=== PATIENT | male | born 1970 | race Two or more races ===

== ENCOUNTER 2024-11-22 23:25 | Inpatient (IN) | payer MEDICAID, OTHER ==
[~2024-11-22] VITALS: Ht 170.2 cm; Wt 104.5 kg
[2024-11-22] MEDS: SODIUM CHLORIDE 0.9% 1,000 ML IV ONE (23:46)
--- NOTE | 2024-11-22 23:52 | ED.PDOC ---
Altered Mental Status HPI Comments 54-year-old male in to emergency room by EMS for altered level of consciousness. Per EMS, patient was picked up at home where he was last seen acting normal at 7pm. Patient has history of diabetes. Was found by family members altered and confused. Upon arrival of paramedics, noted blood sugar of 21. Patient was givem D10 water and blood sugar slightly improved to 73 which slightly improved patients status. Patient still confused at this time of care and unable to answer any questions. 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) Family History Family History: Pt Confused Social History Smoker: Pt Confused Alcohol: Pt Confused Drugs: Pt Confused Lives In: Home Unable to Obtain due to: Altered Mental Status, Other (Hypoglycemia) Physical Exam General Appearance: No Apparent Distress, Normal HEENT: Normal ENT Inspection, Pharynx Normal, TMs Normal Neck: Full Range of Motion, Non-Tender, Normal, Normal Inspection Respiratory: Chest Non-Tender, Lungs Clear, No Accessory Muscle Use, No Respiratory Distress, Normal Breath Sounds Cardiovascular: No Edema, No JVD, No Murmur, No Gallop, Normal Peripheral Pulses, Regular Rate/Rhythm Breast Exam: Deferred Gastrointestinal: No Organomegaly, Non Tender, No Pulsatile Mass, Normal Bowel Sounds, Soft Genitalia: Deferred Pelvic: Deferred Rectal: Deferred Extremities: No calf tenderness, Normal capillary refill, Normal inspection, Normal range of motion, Non-tender, No pedal edema Musculoskeletal : Apperance: Normal Neurologic: Alert, rand sewer II-XII nml as Tested, No Motor Deficits, Normal Affect, Normal Mood, No Sensory Deficits Cerebellar Function: Normal Reflexes: Normal Skin: Dry, Normal Color, Warm Lymphatic: No Adenopathy Was a procedure done? Was a procedure done?: Yes Sedation Sedation?: Yes Informed consent obtained: Yes Sedation start time: 02:12 Sedation end time: 03:12 Sedation total time: Patient is still sedated at this time Central Line Recorder of insertion practice: Observer Occupation of hand inserter operator: Attending Physician Indication: Inability to obtain IV, Suspected infection Room prepared for procedure: Yes Siebel Architect performed hand hygien: Yes Maximal sterile barrier precau: Mask/Eye shield, Sterile gown, Cap, Sterlie gloves, Large sterlie drape Skin Preparation: Providine iodine Skin preparation completely dr: Yes Insertion site: Right, Femoral Central line catheter type: Tunneled- not dialysis Number of lumens: 3 Central line exchanged over a: Yes Antiseptic ointment applied to: Yes Post Assessment: Chest X-Ray Informed consent obtained: Yes Risks/benefits/alt described: Yes Intubation Indication: Altered Mental Status, Airway Protection Prep: Preoxygenation Pretreated with: Sedation Medicated with: Other (Rocuronium, etomidate) Intubation Approach: Orotracheal Intubation size: cm (8) Informed consent obtained: Yes Risks/benefits/alt described: Yes Differential Diagnosis (ALOC) Differential Diagnosis: Hypoglycemia, Encephalopathy, Hypoxemia, CVA, Drug Overdose, ETOH Intoxication X-Ray, Labs, Meds, VS Vital Signs Date Time Temp Pulse Resp B/P (MAP) Pulse Ox O2 Delivery O2 Flow Rate FiO2 11/23/24 02:35 88 16 200/116 (144) 100 11/23/24 00:05 76 12 94 Room Air* 0 21 11/22/24 23:50 76 12 165/81 (109) 94 11/22/24 23:28 64 11/22/24 23:25 98.3 81 16 113/70 (84) 93 Lab Test 11/23/24 02:45 11/23/24 01:38 11/23/24 01:25 11/23/24 01:00 Range/Units Urine Color Pending Urine Clarity Pending Urine pH Pending Urine Specific [place] Pending Urine Protein Pending Urine Ketones Pending Urine Blood Pending Urine Nitrite Pending Urine Bilirubin Pending Urine Urobilinogen Pending Urine Leukocyte Esterase Pending Urine RBC Pending Urine Microscopic WBC Pending Urine Squamous Epithelial Cells Pending Urine Bacteria Pending Urine Glucose Pending Urine Opiates Screen Pending Urine Fentanyl Screen Pending Urine Barbiturates Screen Pending Urine Phencyclidine Screen Pending Urine Amphetamines Screen Pending Urine Benzodiazepines Screen Pending Urine Cocaine Screen Pending Urine Cannabinoids Screen Pending POC Glucose 108 H 96 70-106 mg/dl Troponin I High Sensitivity 3 L </=54 ng/L Test 11/23/24 00:20 11/23/24 00:09 Range/Units White Blood Count 4.8 4.4-10.8 10^3/uL Red Blood Count 4.29 L 4.5-5.90 10^6/uL Hemoglobin 12.8 L 13.5-17.5 g/dL Hematocrit 37.8 L 41.0-53.0 % Mean Corpuscular Volume 88.1 80.0-100.0 fL Mean Corpuscular Hemoglobin 29.8 28.0-32.0 pg Mean Corpuscular Hemoglobin Concent 33.8 32.0-36.0 g/dL Red Cell Distribution Width 14.3 11.8-14.3 % Platelet Count 226 140-450 10^3/uL Mean Platelet Volume 7.6 6.9-10.8 fL Neutrophils (%) (Auto) 64.4 37.0-80.0 % Lymphocytes (%) (Auto) 25.5 10.0-50.0 % Monocytes (%) (Auto) 7.7 0.0-12.0 % Eosinophils (%) (Auto) 1.3 0.0-7.0 % Basophils (%) (Auto) 1.1 0.0-2.0 % Neutrophils # (Auto) 3.1 1.6-8.6 10 ^3/uL Lymphocytes # (Auto) 1.2 0.4-5.4 10 ^3/uL Monocytes # (Auto) 0.4 0-1.3 10 ^3/uL Eosinophils # (Auto) 0.1 0-0.8 10 ^3/uL Basophils # (Auto) 0.1 0-0.2 10 ^3/uL Nucleated Red Blood Cells 0.1 % Sodium Level 136 136-145 mmol/L Potassium Level 3.5 3.5-5.1 mmol/L Chloride Level 103 98-107 mmol/L Carbon Dioxide Level 26 20-31 mmol/L Anion Gap 7 5-15 Blood Urea Nitrogen 16 9-23 mg/dL Creatinine 0.82 0.700-1.30 mg/dL Glomerular Filtration Rate Calc 104 >90 mL/min BUN/Creatinine Ratio 19.5 10.0-20.0 Serum Glucose 138 H 74-106 mg/dL Lactic Acid Level 1.1 0.4-2.0 mmol/L Calcium Level 8.6 L 8.7-10.4 mg/dL Troponin I High Sensitivity 3 L </=54 ng/L POC Glucose 159 H 70-106 mg/dl Current Medications Medications (Trade) Dose Ordered Sig/Eneida Route Start Time Stop Time Status Last Admin Sodium Chloride 1,000 ml @ 1,000 mls/hr Q1H ONCE IV 11/22/24 23:45 11/23/24 00:44 DC 11/22/24 23:46 EXAM: CT HEAD WITHOUT CONTRAST INDICATION: ams TECHNIQUE: CT of the head without intravenous contrast. Radiation Dose : 1. Head: CT Dose: CTDI volume is 66 mGy. Dose-length product is 1297 mGy*cm The dose indicators for CT are the volume Computed Tomography (CT) Dose Index (CTDIvol) and the Dose Length Product (DLP), and are measured in units of mGy and mGy-cm, respectively. These indicators are not patient dose, but values generated from the CT scanner acquisition factors. The report includes radiation exposure data for exposures received during this examination. COMPARISON: None FINDINGS: There is no evidence of acute intracranial hemorrhage, extra-axial collection, mass effect, midline shift, herniation or hydrocephalus. The ventricles, sulci and cisterns are age appropriate. The villalta-white differentiation is intact. Patchy periventricular and subcortical white matter hypoattenuation is nonspecific but may be related to small vessel ischemic disease. The visualized paranasal sinuses and mastoid air cells are clear. The surrounding soft tissues and osseous structures are unremarkable. IMPRESSION: No acute intracranial abnormality. CHEST RADIOGRAPH Indication: ams Technique: Single frontal view of the chest was obtained COMPARISON: None FINDINGS: Lines and Tubes: None Lungs: Lung volumes are low. No pulmonary edema. No pulmonary infiltrates noted. Mild bibasilar subsegmental atelectasis. Pleura: No effusion. No pneumothorax. Cardiomediastinal contours: Unremarkable Bones: Unremarkable IMPRESSION: Low lung volumes with mild bibasilar subsegmental atelectasis. Time of 1ST Reevaluation: 23:43 Reevaluation 1ST: Unchanged Patient Education/Counseling: Pt Unresponsive (The verbal stimuli) Family Education/Counseling: No Family Present Departure 1 Departure Time of Disposition: 03:36 (Patient with a worsening altered mental status. Patient was becoming more agitated, combative and no longer protecting his airway. Patient was intubated and central line placed. We will admit patient to ICU for further workup) Impression: Primary Impression: Metabolic encephalopathy Additional Impressions: Altered mental status Qualified Codes: R41.0 - Disorientation, unspecified Hypoglycemia Generalized weakness Disposition: ADMITTED INPATIENT Admit to: ICU Condition: Critical Critical Care Note Critical Care Time?: Yes (35 min-critical care time only) Critical care comment: Hypoglycemia, metabolic encephalopathy Authorized and Performed by: Ana Luisa Dallas MD Total critical care time: Approximately 57 minutes Due to a high probability of clinically significant, life threatening deter ioration, the patient required my highest level of preparedness to intervene emergently and I personally spent this critical care time directly and personally managing the patient. This critical care time included obtaining a history; examining the patient; pulse oximetry; ordering and review of studies; arranging urgent treatment with development of a management plan; evaluation of patient's response to treatment; frequent reassessment; and, discussions with other providers. This critical care time was performed to assess and manage the high probability of imminent, life-threatening deterioration that could result in multi-organ fa ilure. It was exclusive of separately billable procedures and treating other patients and teaching time. Please see my other sections and the rest of the note for further information on patient assessment and treatment. Stability Stability form required: No Heart Score Heart Score: Heart Score Response (Comments) Value History N/A 0 EKG N/A 0 Age N/A 0 Risk Factors N/A 0 Troponin N/A 0 Total 0 I personally scribed for ANA LUISA DALLAS MD (KAREN) on 11/22/24 at 23:52. Electronically submitted [facility] Cot[facility] I personally scribed for ANA LUISA DALLAS MD (KAREN) on 11/23/24 at 00:50. Electronically submitted by [facility]us Cotto ([facility] I personally scribed for ANA LUISA DALLAS MD (KAREN) on 11/23/24 at 02:43. Electronically submitted by [facility] Cotto ([facility] I personally scribed for ANA LUISA DALLAS MD (KAREN) on 11/23/24 at 02:48. Electronically submitted by Marcellus Cotto ([email or web address]). ANA LUISA DALLAS MD Nov 22, 2024 23:52
[2024-11-23] VITALS (50 sets, daily range): BP systolic 67–138; BP diastolic 33–71; PULSE 66–80; RESP 12–15; TEMP 97–98.9; O2SAT 94–100
--- NOTE | 2024-11-23 00:18 | DVH ---
EXAM: CT HEAD WITHOUT CONTRAST INDICATION: ams TECHNIQUE: CT of the head without intravenous contrast. Radiation Dose : 1. Head: CT Dose: CTDI volume is 66 mGy. Dose-length product is 1297 mGy*cm The dose indicators for CT are the volume Computed Tomography (CT) Dose Index (CTDIvol) and the Dose Length Product (DLP), and are measured in units of mGy and mGy-cm, respectively. These indicators are not patient dose, but values generated from the CT scanner acquisition factors. The report includes radiation exposure data for exposures received during this examination. COMPARISON: None FINDINGS: There is no evidence of acute intracranial hemorrhage, extra-axial collection, mass effect, midline s hift, herniation or hydrocephalus. The ventricles, sulci and cisterns are age appropriate. The villalta-white differentiation is intact. Patchy periventricular and subcortical white matter hypoattenuation is nonspecific but may be related to small vessel ischemic disease. The visualized paranasal sinuses and mastoid air cells are clear. The surrounding soft tissues and osseous structures are unremarkable. IMPRESSION: No acute intracranial abnormality.
--- NOTE | 2024-11-23 00:22 | DVH ---
CHEST RADIOGRAPH Indication: ams Technique: Single frontal view of the chest was obtained COMPARISON: None FINDINGS: Lines and Tubes: None Lungs: Lung volumes are low. No pulmonary edema. No pulmonary infiltrates noted. Mild bibasilar subse gmental atelectasis. Pleura: No effusion. No pneumothorax. Cardiomediastinal contours: Unremarkable Bones: Unremarkable IMPRESSION: Low lung volumes with mild bibasilar subsegmental atelectasis.
[2024-11-23 00:46] LABS: Basophils # (auto) 0.1 10 ^3/uL (0-0.2); Basophils % (auto) 1.1 % (0.0-2.0); Eosinophils # (auto) 0.1 10 ^3/uL (0-0.8); Eosinophils % (auto) 1.3 % (0.0-7.0); Hematocrit 37.8 % (41.0-53.0); Hemoglobin 12.8 g/dL (13.5-17.5); Lymphocytes # (auto) 1.2 10 ^3/uL (0.4-5.4); Lymphocytes % (auto) 25.5 % (10.0-50.0); Mean Corpuscular Hemoglobin 29.8 pg (28.0-32.0); Mean Corpuscular Hgb Conc. 33.8 g/dL (32.0-36.0); Mean Corpuscular Volume 88.1 fL (80.0-100.0); Monocytes # (auto) 0.4 10 ^3/uL (0-1.3); Monocytes % (auto) 7.7 % (0.0-12.0); Neutrophils # (auto) 3.1 10 ^3/uL (1.6-8.6); Neutrophils % (auto) 64.4 % (37.0-80.0); Nucleated Red Blood Cells % 0.1 %; Platelet Count (auto) 226 10^3/uL (140-450); Red Blood Cells 4.29 10^6/uL (4.5-5.90); Red Cell Distribution Width 14.3 % (11.8-14.3); White Blood Cell 4.8 10^3/uL (4.4-10.8)
[2024-11-23 00:58] LABS: Chloride 103 mmol/L (98-107); Sodium 136 mmol/L (136-145)
[2024-11-23 00:59] LABS: Anion Gap 7 (5-15); Carbon Dioxide 26 mmol/L (20-31)
[2024-11-23 01:04] LABS: BUN/Creatinine Ratio 19.5 (10.0-20.0); Blood Urea Nitrogen 16 mg/dL (9-23)
[2024-11-23 01:05] LABS: Calcium 8.6 mg/dL (8.7-10.4); Glucose 138 mg/dL (74-106); Potassium 3.5 mmol/L (3.5-5.1)
[2024-11-23] MEDS: ETOMIDATE (2MG/ML) 20ML VIAL IV ONE ×2 (02:12→02:26)
[2024-11-23] MEDS: ROCURONIUM 10MG/ML 10ML VIAL IV ONE ×2 (02:12→02:27)
[2024-11-23] MEDS: PROPOFOL 100 ML IV SCH (02:55)
[2024-11-23] MEDS: PROPOFOL 100 ML IV ONE (02:56)
[2024-11-23 03:09] LABS: Urine Bacteria None Seen /hpf (None Seen)
[2024-11-23 03:57] LABS: Urine Blood 1+ /uL (Negative); Urine Clarity Clear (Clear); Urine Color Light-Yellow (Yellow); Urine Protein, UAD TRACE (Negative); Urine Specific Gravity 1.009 (1.001-1.035); Urine Squamous Epithelial Cell None Seen /hpf (<5); Urine Urobilinogen Normal (Negative); Urine WBC 13 /HPF (0-3); Urine pH 6.5 (5.0-9.0)
[2024-11-23 04:01] LABS: Barbiturate Scree,Urine Neg (NEGATIVE)
[2024-11-23] MEDS: fentaNYL Drip 2500mCg/250mlNS 250 ML IV SCH (04:05)
[2024-11-23 04:15] LABS: Amphetamine Screen, Urine Neg (NEGATIVE); Benzodiazephine Screen, Urine Neg (NEGATIVE); Cannabinoid Screen, Urine Neg (NEGATIVE); Cocaine Screen, Urine Neg (NEGATIVE); Opiate Scree,Urine Neg (NEGATIVE); Phencyclidine Screen, Urine Neg (NEGATIVE)
[2024-11-23] MEDS ORDERED: MORPHINE SULFATE INJ 2 MG/ml SYRG IV PRN (04:15)
[2024-11-23] MEDS: SODIUM CHLORIDE 0.9% 1,000 ML IV SCH (04:15)
[2024-11-23] MEDS ORDERED: DEXTROSE (50%) 50ML SYRG IV PRN (04:15)
[2024-11-23] MEDS ORDERED: NITROGLYCERIN 0.4 MG SL TAB SL PRN (04:15)
--- NOTE | 2024-11-23 04:30 | DVHHP2 ---
History of Present Illness Reason for Visit: Acute respiratory failure History of Present Illness The patient is a 54-year-old male with past medical history of factor five deficiency and diabetes mellitus who presented to [facility] ED for evaluation of altered level of consciousness. As reported by family member, patient was found unresponsive, altered, and confused, so EMS were called. When EMS arrived on the scene, patient's blood sugar was 21 mg/dL and was given D10, blood sugar slightly improved to 73 [address] route to our facility ED. patient was seen and evaluated in the ED, laboratory data shows WBC 4.8, platelets 226, sodium 136, potassium 3.5, BUN 16, creatinine 0.82, GFR 104, glucose 136, calcium 8.6, troponin 3, lactic acid 1.1. Patient became more altered with respiratory distress, increased work of breathing, and subsequently intubated due to high probability of clinically significant life-threatening deterioration. Blood pressure 207/124 trending down to 145/91, heart rate 87, temperature 94.1 F, O2 saturation 94% on ventilator. Head CT showed no acute intracranial abnormality. Please see medication orders section in the computer. On my assessment, patient is fully intubated, family member at bedside, no diaphoresis, no diarrhea, no vomiting, no fever. Patient was admitted for further evaluation and medical management. Past Medical History DM, Factor 5 deficiency Past Surgical History AKA (left) Family History Reviewed, noncontributory to the management of this case. Past Social History The patient lives at home, no history of smoking, alcohol or illicit drugs abuse on file. Review of Systems Constitutional: Yes: Weakness; No: Fever, Chills, Sweats, Malaise, Other Eyes: No: Pain, Vision change, Conjunctivae inflammation, Eyelid inflammation, Other, Redness ENT: No: Ear pain, Ear discharge, Nose pain, Nose discharge, Nose congestion, Mouth pain, Mouth swelling, Throat pain, Throat swelling, Other Respiratory: Shortness of breath; No: Cough, Dry, SOB with excertion, Wheezing, Hemoptysis, Pleuritic Pain, Sputum, Wheezing, Other Cardiovascular: No: Chest Pain, Palpitations, Orthopnea, Paroxysmal Noc. Dyspnea, Edema, Lt Headedness, Other Gastrointestinal: No: Nausea, Vomiting, Abdominal Pain, Diarrhea, Constipation, Melena, Hematochezia, Other Genitourinary: No Dysuria, No Frequency, No Incontinence, No Hematuria, No Retention, No Other Musculoskeletal: No: other, neck pain, shoulder pain, arm pain, back pain, hand pain, leg pain, foot pain Skin: No: Rash, Lesions, Jaundice, Bruising, Other Neurological: Other (Altered level of consciousness); No: Weakness, Numbness, Incoordination, Change in speech, Confusion, Seizures Allergies: Coded Allergies: Sulfa Antibiotics (Verified Allergy, Unknown, 11/23/24) Medications Current Medications Medications Dose Ordered Sig/Eneida Route Start Time Stop Time Status Last Admin Dose Admin Propofol 100 ml @ 2.04 mls/hr Q24H IV 11/23/24 02:55 11/23/24 02:55 2.04 MLS/HR Fentanyl Citrate 250 ml @ 2.5 mls/hr Q24H IV 11/23/24 04:00 11/23/24 04:05 2.5 MLS/HR Exam Vital Signs Vital Signs Date Time Temp Pulse Resp B/P (MAP) Pulse Ox O2 Delivery O2 Flow Rate FiO2 11/23/24 04:05 145/91 11/23/24 03:15 94.1 87 16 97 94.1 11/23/24 00:05 Room Air* 0 21 General Appearance: Other (Altered) HEENT: Atraumatic, PERRLA, EOMI, Mucous membr. moist/pink Respiratory: Normal air movement, Other (Ventilator) Cardiovascular: Regular rate, Normal S1, Normal S2, No murmurs Abdominal: Normal bowel sounds, Soft, No tenderness, No hepatospenomegaly, No masses Extremities: No clubbing, No cyanosis, No edema, Normal pulses, No tenderness/swelling Skin: No rashes, No breakdown, No significant lesion Neuro: Reflexes 2+, Other (Generalized weakness) Psych/Mental Status: Other (Unobtainable) Labs/Xrays Labs Test 11/23/24 02:45 11/23/24 01:38 11/23/24 01:25 11/23/24 00:20 Range/Units Urine Color Light-yellow Yellow Urine Clarity Clear Clear Urine pH 6.5 5.0-9.0 Urine Specific [place] 1.009 1.001-1.035 Urine Protein Trace H Negative Urine Ketones Negative Negative Urine Blood 1+ H Negative /uL Urine Nitrite Negative Negative Urine Bilirubin Negative Negative Urine Urobilinogen Normal Negative mg/dL Urine Leukocyte Esterase Trace Negative /uL Urine RBC 8 0 - 3 /hpf Urine Microscopic WBC 13 H 0-3 /HPF Urine Squamous Epithelial Cells None seen <5 /hpf Urine Bacteria None seen None Seen /hpf Urine Glucose 3+ H Normal mg/dL Urine Opiates Screen Neg NEGATIVE Urine Fentanyl Screen Neg NEGATIVE Urine Barbiturates Screen Neg NEGATIVE Urine Phencyclidine Screen Neg NEGATIVE Urine Amphetamines Screen Neg NEGATIVE Urine Benzodiazepines Screen Neg NEGATIVE Urine Cocaine Screen Neg NEGATIVE Urine Cannabinoids Screen Neg NEGATIVE POC Glucose 108 H 70-106 mg/dl Troponin I High Sensitivity 3 L </=54 ng/L White Blood Count 4.8 4.4-10.8 10^3/uL Red Blood Count 4.29 L 4.5-5.90 10^6/uL Hemoglobin 12.8 L 13.5-17.5 g/dL Hematocrit 37.8 L 41.0-53.0 % Mean Corpuscular Volume 88.1 80.0-100.0 fL Mean Corpuscular Hemoglobin 29.8 28.0-32.0 pg Mean Corpuscular Hemoglobin Concent 33.8 32.0-36.0 g/dL Red Cell Distribution Width 14.3 11.8-14.3 % Platelet Count 226 140-450 10^3/uL Mean Platelet Volume 7.6 6.9-10.8 fL Neutrophils (%) (Auto) 64.4 37.0-80.0 % Lymphocytes (%) (Auto) 25.5 10.0-50.0 % Monocytes (%) (Auto) 7.7 0.0-12.0 % Eosinophils (%) (Auto) 1.3 0.0-7.0 % Basophils (%) (Auto) 1.1 0.0-2.0 % Neutrophils # (Auto) 3.1 1.6-8.6 10 ^3/uL Lymphocytes # (Auto) 1.2 0.4-5.4 10 ^3/uL Monocytes # (Auto) 0.4 0-1.3 10 ^3/uL Eosinophils # (Auto) 0.1 0-0.8 10 ^3/uL Basophils # (Auto) 0.1 0-0.2 10 ^3/uL Nucleated Red Blood Cells 0.1 % Sodium Level 136 136-145 mmol/L Potassium Level 3.5 3.5-5.1 mmol/L Chloride Level 103 98-107 mmol/L Carbon Dioxide Level 26 20-31 mmol/L Anion Gap 7 5-15 Blood Urea Nitrogen 16 9-23 mg/dL Creatinine 0.82 0.700-1.30 mg/dL Glomerular Filtration Rate Calc 104 >90 mL/min BUN/Creatinine Ratio 19.5 10.0-20.0 Serum Glucose 138 H 74-106 mg/dL Lactic Acid Level 1.1 0.4-2.0 mmol/L Calcium Level 8.6 L 8.7-10.4 mg/dL PATIENT: DENNY HERNANDEZ ACCT: [id number] UNIT: [id number] : 1970 LOC: ER ROOM / BED: / AGE / SEX: 54 / M ADM STATUS: REG ER SERVICE [id number] ORDERING PHYSICIAN: ANA LUISA GRULLON MD PROCEDURE(s): HWOCT - HEAD WITHOUT CONTRAST REASON: [facility] ORDER NUMBER(s): [id number], ACCESSION NUMBER(s): [id number] EXAM: CT HEAD WITHOUT CONTRAST INDICATION: ams TECHNIQUE: CT of the head without intravenous contrast. Radiation Dose: 1. Head: CT Dose: CTDI volume is 66 mGy. Dose-length product is 1297 mGy*cm The dose indicators for CT are the volume Computed Tomography (CT) Dose Index (CTDIvol) and the Dose Length Product (DLP), and are measured in units of mGy and mGy-cm, respectively. These indicators are not patient dose, but values generated from the CT scanner acquisition factors. The report includes radiation exposure data for exposures received during this examination. COMPARISON: None FINDINGS: There is no evidence of acute intracranial hemorrhage, extra-axial collection, mass effect, midline shift, herniation or hydrocephalus. The ventricles, sulci and cisterns are age appropriate. The villalta-white differentiation is intact. Patchy periventricular and subcortical white matter hypoattenuation is nonspecific but may be related to small vessel ischemic disease. The visualized paranasal sinuses and mastoid air cells are clear. The surrounding soft tissues and osseous structures are unremarkable. IMPRESSION: No acute intracranial abnormality. PROCEDURE(s): CXRP - CHEST PORTABLE REASON: [facility] ORDER NUMBER(s): [id number], ACCESSION NUMBER(s): [id number] CHEST RADIOGRAPH Indication: ams Technique: Single frontal view of the chest was obtained COMPARISON: None FINDINGS: Lines and Tubes: None Lungs: Lung volumes are low. No pulmonary edema. No pulmonary infiltrates noted. Mild bibasilar subsegmental atelectasis. Pleura: No effusion. No pneumothorax. Cardiomediastinal contours: Unremarkable Bones: Unremarkable IMPRESSION: Low lung volumes with mild bibasilar subsegmental atelectasis. Assessment/Plan Assessment/Plan Metabolic encephalopathy Altered mental status Disorientation, unspecified Hypoglycemia Hypertensive urgency Generalized weakness Plan 1. Admit to telemetry unit 2. Breathing treatment 3. Pain control management 4. Management of fluids and electrolytes 5. Consultation for hospitalist/pulmonology 6. Diagnostic tests head CT 7. DVT prophylaxis on SCDs 8. Repeat labs CBC, CMP in a.m. 9. Continue with current medical management 10. Treatment plan discussed with patient and RN. Patient verbalized understanding. Plan discussed with: Patient, Other (RN) Problem List: (1) Metabolic encephalopathy (2) Altered mental status (3) Hypoglycemia (4) Disorientation, unspecified (5) Hypertensive urgency (6) Generalized weakness Date of Service: Nov 23, 2024 Billing Provider: JACKIE ARIAS DNP Common Visit Codes: [id number] INP/OBS CARE (HIGH) JACKIE ARIAS DNP Nov 23, 2024 04:30
[2024-11-23] MEDS: SODIUM CHLORIDE 0.9% 2,000 ML IV ONE (04:55)
[2024-11-23 05:14] LABS: Base Excess 1.6 mmol/L (-2.0-3.0)
[2024-11-23] MEDS: NOREPINEPHRINE 8 MG/250ML KIT 250 ML IV ONE (05:23)
[2024-11-23] MEDS: NOREPINEPHRINE 8 MG/250ML KIT 250 ML IV SCH (05:23)
--- NOTE | 2024-11-23 06:14 | ECG ---
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
--- NOTE | 2024-11-23 06:21 | DVH ---
EXAM: XR Chest, 1 View CLINICAL INDICATION: s/p intubation/OG tube placement TECHNIQUE: Frontal view of the chest. COMPARISON: XY CHEST PORTABLE on DOS: 11/23/24 FINDINGS: LUNGS AND PLEURAL SPACES: Mild pulmonary congestion. No consolidation. No pneumothorax. HEART: Unremarkable. No cardiomegaly. MEDIASTINUM: Unremarkable. Normal mediastinal contour. BONES/JOINTS: Unremarkable. No acute fracture. TUBES, LINES AND DEVICES: The endotracheal tube (ETT) is in satisfactory position. Enteric tube ti p in the stomach. OTHER FINDINGS: . None. ... IMPRESSION: Mild pulmonary congestion.
[2024-11-23] MEDS: ACCU-CHEK COMFORT CURVE STRIP VI SCH (06:53)
[2024-11-23] MEDS: InsuLIN REG 1unit/0.01ml Soln (100units/ml) SC SCH (06:53)
[2024-11-23] MEDS: FAMOTIDINE (10MG/ML) 2ML VL IV SCH (10:09)
[2024-11-23 10:45] LABS: Base Excess -0.4 mmol/L (-2.0-3.0)
[2024-11-23] MEDS ORDERED: WARF-66 PO ×3 (13:43)
[2024-11-23] MEDS ORDERED: LISI20TA56 PO (14:23)
[2024-11-23] MEDS ORDERED: ATOR10TA PO (14:27)
[2024-11-23 16:08] LABS: INR 2.12 (0.9-1.15); Partial Thromboplastin Time 39.4 SEC (24.5-34.5); Prothrombin Time 20.9 sec (9.3-11.8)
--- NOTE | 2024-11-23 18:16 | DVHINCON2 ---
Date of service: Nov 23, 2024 Referring Physician Neville Driscoll MD Reason for Consultation Acute hypoxic respiratory failure requiring mechanical ventilator History of Present Illness A 54-year-old man with past medical history of factor V deficiency and diabetes mellitus who presented to the ED on 11/22/24 for evaluation of altered level of consciousness. Per family, patient was found unresponsive, altered, and conf used, so EMS were called. EMS noted blood sugar of 21 mg/dL and was given D10, blood sugar slightly improved to 73 en route to ED. ED workup was notable for WBC 4.8, platelets 226, sodium 136, potassium 3.5, BUN 16, creatinine 0.82, GFR 104, glucose 136, calcium 8.6, troponin 3, lactic acid 1.1. Patient became more altered with respiratory distress, increased work of breathing, and was subsequently intubated due to high probability of clinically significant life-threatening deterioration. Blood pressure was 207/124 trending down to 145/91, heart rate 87, temperature 94.1 F, O2 saturation 94% on ventilator. Head CT showed no acute intracranial abnormality. Patient was admitted for further care, and pulmonary consultation is requested for evaluati on and management of acute hypoxic respiratory failure requiring mechanical ventilator. Review of Systems: 14-point review of systems negative unless otherwise noted above. Past Medical History: Factor V deficiency and diabetes mellitus Past Surgical History: Left AKA Medications: Reviewed. Allergies: Sulfa antibiotics Family History: No family history of premature CAD. No family history of lung disorders. Social History: Nonsmoker. No alcohol or illicit drug use. Allergies: Coded Allergies: Sulfa Antibiotics (Verified Allergy, Unknown, 11/23/24) Home Meds Reported Medications Atorvastatin Calcium (Lipitor) 10 Mg Tab, 1 TAB PO DAILY, #100 TAB 1 Refill 11/23/24 Lisinopril (Lisinopril) 20 Mg Tab, 20 MG PO DAILY for 30 Days, MG 11/23/24 Warfarin Sodium (Warfarin Sodium) 5 Mg Tab, 5 MG PO UD for FACTOR for 30 Days, MG 11/23/24 Warfarin Sodium (Warfarin Sodium) 5 Mg Tab, 2 TAB PO TUTHSA for FACTOR 5, #90 TAB 1 Refill 11/23/24 Warfarin Sodium (Warfarin Sodium) 5 Mg Tab, 15 MG PO MWF for FACTOR 5 for 30 Days, MG 11/23/24 Current Medications Current Medications Medications (Trade) Dose Ordered Sig/Eneida Route PRN Reason Start Time Stop Time Status Last Admin Propofol 100 ml @ 2.04 mls/hr Q24H IV 11/23/24 02:55 11/23/24 16:21 Fentanyl Citrate 250 ml @ 2.5 mls/hr Q24H IV 11/23/24 04:00 11/23/24 14:54 Famotidine (Pepcid Injection) 20 mg Q12HR IV 11/23/24 10:00 11/23/24 10:09 Diagnostic Test (Pha) (Accu-Chek Comfort Curve T) 1 strip ACHS 11/23/24 07:00 11/23/24 16:28 Insulin Human Regular (InsuLIN R) ACHS SC 11/23/24 07:00 Dextrose 50 ml UD PRN IV Blood Sugar LESS THAN 60 11/23/24 04:15 Sodium Chloride 1,000 ml @ 60 mls/hr [id number] IV 11/23/24 04:15 11/23/24 04:15 Ondansetron HCl (Zofran) 4 mg Q4HP PRN IV NAUSEA / VOMITING 11/23/24 04:15 Nitroglycerin (Ntrostat Sublingual) 0.4 mg Q5MINP PRN SL FOR CHEST PAIN 11/23/24 04:15 Morphine Sulfate 2 mg Q30M PRN IV FOR CHEST PAIN 11/23/24 04:15 Hydralazine HCl (Apresoline Injection) 10 mg Q6HP PRN IV SBP>150 11/23/24 05:15 Norepinephrine Bitartrate 250 ml @ 18.75 mls/ hr [id number] IV 11/23/24 05:15 11/23/24 05:23 Vital Signs Vital Signs Date Time Temp Pulse Resp B/P (MAP) Pulse Ox O2 Delivery O2 Flow Rate FiO2 11/23/24 17:35 14 100 Mechanical Ventilator+ 30 30 11/23/24 17:35 76 11/23/24 16:30 138/71 (93) 11/23/24 16:00 98.9 98.9 11/23/24 00:05 0 Physical Exam Gen.: Patient lying in bed in medical ICU. Sedated, intubated on mechanical ventilator. Head: Normocephalic, atraumatic. Eyes: PERRLA. Ears: Normal external anatomy. Throat: Endotracheal tube and orogastric tube in place. Neck: Supple, trachea midline. Chest: Transmitted breath sounds bilaterally. Decreased air entry bilaterally. No wheezing. Bibasilar crackles. Cardiovascular: Positive S1, positive S2. Regular rate and rhythm. Abdomen: Positive bowel sounds in all 4 quadrants. Soft, nontender, nondistended. : Oquendo in place. Normal external genitalia. Rectal: Deferred. Skin: Warm, dry. Intact. Extremities: 2+ radial pulses bilaterally. Left AKA. No lower extremity edema. Neuro: Sedated. Labs/Diagnostic Data Labs Test 11/23/24 16:28 11/23/24 15:00 11/23/24 10:32 11/23/24 02:45 Range/Units POC Glucose 76 70-106 mg/dl Prothrombin Time 20.9 H 9.3-11.8 sec Prothrombin Time INR 2.12 H 0.9-1.15 Activated Partial Thromboplast Time 39.4 H 24.5-34.5 SEC Blood Gas Specimen Type Arterial Blood Gas Sample Site Left brachial Blood Gas Patient Temperature 37.0 Arterial Blood Date Drawn [id number] Arterial Blood pH 7.387 7.350-7.450 Arterial Blood Partial Pressure CO2 42.0 35.0-48.0 mmHg Arterial Blood Partial Pressure O2 110.0 H 83.0-108.0 mmHg Arterial Blood HCO3 24.7 21.0-28.0 mmol/L Arterial Blood Oxygen Saturation 97.8 94.0-98.0 % Arterial Blood Base Excess -0.4 -2.0-3.0 mmol/L Arterial Blood Oxyhemoglobin 96.5 94.0-98.0 % Arterial Blood Carboxyhemoglobin 0.3 L 0.5-1.5 % Arterial Blood Methemoglobin 1.0 0.0-1.5 % Chris Test N/a Blood Gas Total Hemoglobin 11.80 L 13.5-17.5 g/dL Blood Gas Set Respiration Rate 14.0 Blood Gas Modality Vent - ac Blood Gas Spontaneous Rate 14 FiO2 % 30.0 Blood Gas Tidal Volume 450.0 Blood Gas PEEP or CPAP 5.0 Urine Color Light-yellow Yellow Urine Clarity Clear Clear Urine pH 6.5 5.0-9.0 Urine Specific [place] 1.009 1.001-1.035 Urine Protein Trace H Negative Urine Ketones Negative Negative Urine Blood 1+ H Negative /uL Urine Nitrite Negative Negative Urine Bilirubin Negative Negative Urine Urobilinogen Normal Negative mg/dL Urine Leukocyte Esterase Trace Negative /uL Urine RBC 8 0 - 3 /hpf Urine Microscopic WBC 13 H 0-3 /HPF Urine Squamous Epithelial Cells None seen <5 /hpf Urine Bacteria None seen None Seen /hpf Urine Glucose 3+ H Normal mg/dL Urine Opiates Screen Neg NEGATIVE Urine Fentanyl Screen Neg NEGATIVE Urine Barbiturates Screen Neg NEGATIVE Urine Phencyclidine Screen Neg NEGATIVE Urine Amphetamines Screen Neg NEGATIVE Urine Benzodiazepines Screen Neg NEGATIVE Urine Cocaine Screen Neg NEGATIVE Urine Cannabinoids Screen Neg NEGATIVE Test 11/23/24 01:25 11/23/24 00:20 Range/Units Troponin I High Sensitivity 3 L </=54 ng/L White Blood Count 4.8 4.4-10.8 10^3/uL Red Blood Count 4.29 L 4.5-5.90 10^6/uL Hemoglobin 12.8 L 13.5-17.5 g/dL Hematocrit 37.8 L 41.0-53.0 % Mean Corpuscular Volume 88.1 80.0-100.0 fL Mean Corpuscular Hemoglobin 29.8 28.0-32.0 pg Mean Corpuscular Hemoglobin Concent 33.8 32.0-36.0 g/dL Red Cell Distribution Width 14.3 11.8-14.3 % Platelet Count 226 140-450 10^3/uL Mean Platelet Volume 7.6 6.9-10.8 fL Neutrophils (%) (Auto) 64.4 37.0-80.0 % Lymphocytes (%) (Auto) 25.5 10.0-50.0 % Monocytes (%) (Auto) 7.7 0.0-12.0 % Eosinophils (%) (Auto) 1.3 0.0-7.0 % Basophils (%) (Auto) 1.1 0.0-2.0 % Neutrophils # (Auto) 3.1 1.6-8.6 10 ^3/uL Lymphocytes # (Auto) 1.2 0.4-5.4 10 ^3/uL Monocytes # (Auto) 0.4 0-1.3 10 ^3/uL Eosinophils # (Auto) 0.1 0-0.8 10 ^3/uL Basophils # (Auto) 0.1 0-0.2 10 ^3/uL Nucleated Red Blood Cells 0.1 % Sodium Level 136 136-145 mmol/L Potassium Level 3.5 3.5-5.1 mmol/L Chloride Level 103 98-107 mmol/L Carbon Dioxide Level 26 20-31 mmol/L Anion Gap 7 5-15 Blood Urea Nitrogen 16 9-23 mg/dL Creatinine 0.82 0.700-1.30 mg/dL Glomerular Filtration Rate Calc 104 >90 mL/min BUN/Creatinine Ratio 19.5 10.0-20.0 Serum Glucose 138 H 74-106 mg/dL Lactic Acid Level 1.1 0.4-2.0 mmol/L Calcium Level 8.6 L 8.7-10.4 mg/dL Microbiology Date/Time Source Procedure Growth Status 11/23/24 02:35 Sputum Endotracheal Wash Gram Stain - Final Resulted 11/23/24 02:35 Sputum Endotracheal Wash Respiratory Culture Pending Resulted Assessment Impression: Acute hypoxic respiratory failure On mechanical ventilator Acute metabolic encephalopathy Altered mental status Hypoglycemia Hypertensive urgency Generalized weakness Shock Plan: s/p intubation on mechanical ventilator. CXR image and report reviewed. Mild pulmonary vascular congestion. Devices in place. ABG reviewed, notable for alkalemia. On AC mode; RR 16, VT 500, PEEP 5, FiO2 of 30% Decrease tidal volume to 450 mL. Titrate FIO2 to keep O2 saturation above 90%. VAP bundle. Daily ABG and CXR while intubated Sedate for ventilator synchrony - on Propofol/Fentanyl drip On pressors for hemodynamic support Levophed 2 mcg/min Titrate to keep mean arterial pressure greater than 65 mmHg. Monitor off antibiotics Afebrile. If febrile or increase in WBC count, then initiate empiric antibiotics Accu-Cheks, insulin sliding scale. Monitor renal function Monitor electrolytes. Supplement as necessary. Monitor ins and outs. GI prophylaxis - Pepcid BID Prognosis: Poor given patient's multiple co-morbidities. Condition: Critical Rest of plan per hospitalist and other consultants. A total of 36 minutes of critical care time was spent reviewing the patient record, examining the patient, making a diagnostic and therapeutic plan, discussing this plan with the medical personnel, following up on diagnostic studies and following the patient for clinical stability excluding any and all procedures. At least 50% of this time was spent in direct, [id number] contact. Thank you, Dr. Driscoll, for allowing me to participate in this patient's care. Further recommendations will depend on the patient's clinical course. Please do not hesitate to contact me if you have any questions or concerns. This medical document was created using an electronic medical record system with [employer] dictation system. Although these documentations are being carefully reviewed, there may still be some phonetic and typographical changes. The errors are purely typographical, due to imperfection on the software progr am, and do not reflect any compromise in the patient's medical care. Plan discussed with: Other (KERMIT Juares/Dr. Driscoll) MICKEY RUFF MD Nov 23, 2024 18:16
[2024-11-23] MEDS: D5W 5% 1,000 ML IV SCH (20:27)
[2024-11-23] MEDS: ACETAMINOPHEN IV 1000 MG/100ML (10MG/ML) IV ONE (22:51)
[2024-11-24] VITALS (90 sets, daily range): BP systolic 79–204; BP diastolic 40–211; PULSE 60–76; RESP 12–19; TEMP 97.7–100.4; O2SAT 98–100
[2024-11-24 06:45] LABS: Basophils # (auto) 0.1 10 ^3/uL (0-0.2); Eosinophils # (auto) 0.3 10 ^3/uL (0-0.8); Hematocrit 35.2 % (41.0-53.0); Hemoglobin 11.6 g/dL (13.5-17.5); Lymphocytes # (auto) 3.5 10 ^3/uL (0.4-5.4); Lymphocytes % (auto) 33.5 % (10.0-50.0); Mean Corpuscular Hemoglobin 29.1 pg (28.0-32.0); Mean Corpuscular Volume 88.2 fL (80.0-100.0); Monocytes # (auto) 1.5 10 ^3/uL (0-1.3); Monocytes % (auto) 14.2 % (0.0-12.0); Neutrophils % (auto) 48.3 % (37.0-80.0); Nucleated Red Blood Cells % 0.1 %; Platelet Count (auto) 252 10^3/uL (140-450); Red Blood Cells 3.99 10^6/uL (4.5-5.90); Red Cell Distribution Width 14.8 % (11.8-14.3); White Blood Cell 10.3 10^3/uL (4.4-10.8)
[2024-11-24 06:54] LABS: Alanine Aminotransferase 19 U/L (7-40); Alkaline Phosphatase 88 U/L (46-116); Anion Gap 9 (5-15); Aspartate Aminotransferase 24 U/L (13-40); BUN/Creatinine Ratio 10.9 (10.0-20.0); Bilirubin, Total 0.2 mg/dL (0.2-1.0); Blood Urea Nitrogen 12 mg/dL (9-23); Calcium 7.7 mg/dL (8.7-10.4); Carbon Dioxide 25 mmol/L (20-31); Chloride 106 mmol/L (98-107); Glucose 85 mg/dL (74-106); Potassium 3.3 mmol/L (3.5-5.1); Sodium 140 mmol/L (136-145)
[2024-11-24 06:55] LABS: Total Protein 5.3 g/dL (5.7-8.2)
[2024-11-24] MEDS: ENOXAPARIN SOD 40 MG/0.4 ML SYRINGE SC SCH (07:24)
[2024-11-24] MEDS: ACETAMINOPHEN 650 MG RECT SUPP PR PRN (08:00)
[2024-11-24 09:39] LABS: Base Excess 2.3 mmol/L (-2.0-3.0)
[2024-11-24] MEDS: POTASSIUM CHL 20MEQ/100ML 100 ML IV SCH (12:30)
[2024-11-24] MEDS: PIPERACILLIN-TAZOB 3.375GM 100 ML IV SCH (13:30)
[2024-11-24] MEDS ORDERED: CIPR500T4 PO (16:06)
[2024-11-24] MEDS ORDERED: METR-344 PO (16:06)
--- NOTE | 2024-11-24 18:04 | DVHPN2 ---
Subjective in bed intubated and sedated Changes from previous H/P or p: No Changes Eyes: No Pain, No Vision change, No Conjunctivae inflammation, No Eyelid inflammation, No Other, No Redness ENT: No Ear pain, No Ear discharge, No Nose pain, No Nose discharge, No Nose congestion, No Mouth pain, No Mouth swelling, No Throat pain, No Throat swelling, No Other Cardiovascular: No Chest Pain, No Palpitations, No Orthopnea, No Paroxysmal Noc. Dyspnea, No Edema, No Lt Headedness, No Other Respiratory: No Cough, No Dry; Shortness of breath; No SOB with excertion, No Wheezing, No Hemoptysis, No Pleuritic Pain, No Sputum, No Other Gastrointestinal: No Nausea, No Vomiting, No Abdominal Pain, No Diarrhea, No Constipation, No Melena, No Hematochezia, No Other Genitourinary: No Dysuria, No Frequency, No Incontinence, No Hematuria, No Retention, No Other Musculoskeletal: No other, No neck pain, No shoulder pain, No arm pain, No back pain, No hand pain, No leg pain, No foot pain Skin: No Rash, No Lesions, No Jaundice, No Bruising, No Other Objective Vitals Vital Signs Date Time Temp Pulse Resp B/P (MAP) Pulse Ox O2 Delivery O2 Flow Rate FiO2 11/24/24 17:45 100.0 70 16 106/54 (71) 99 212.0 11/24/24 17:41 30 11/24/24 17:40 Mechanical Ventilator+ 11/23/24 00:05 0 Intake/Output Intake and Output 11/24/24 07:00 Intake Total 2515.5240 ml Output Total 380 ml Balance 2135.5240 ml IV Total 2515.5240 ml Output Urine Total 380 ml # Bowel Movements 1 General Appearance: Other (intubated and sedated) Cardiovascular: Regular rate Extremities: No edema Medications Current Medications Medications Dose Ordered Sig/Eneida Route Start Time Stop Time Status Last Admin Dose Admin Propofol 100 ml @ 2.04 mls/hr Q24H IV 11/23/24 02:55 11/24/24 15:43 14.28 MLS/HR Fentanyl Citrate 250 ml @ 2.5 mls/hr Q24H IV 11/23/24 04:00 11/24/24 08:56 25 MLS/HR Famotidine 20 mg Q12HR IV 11/23/24 10:00 11/24/24 07:23 20 MG Diagnostic Test (Pha) 1 strip ACHS 11/23/24 07:00 11/24/24 16:12 1 STRIP Insulin Human Regular ACHS SC 11/23/24 07:00 Dextrose 50 ml UD PRN IV 11/23/24 04:15 Ondansetron HCl 4 mg Q4HP PRN IV 11/23/24 04:15 Nitroglycerin 0.4 mg Q5MINP PRN SL 11/23/24 04:15 Morphine Sulfate 2 mg Q30M PRN IV 11/23/24 04:15 Hydralazine HCl 10 mg Q6HP PRN IV 11/23/24 05:15 Norepinephrine Bitartrate 250 ml @ 18.75 mls/ hr [id number] IV 11/23/24 05:15 11/23/24 05:23 18.75 MLS/HR Dextrose 1,000 ml @ 60 mls/hr [id number] IV 11/23/24 20:30 11/24/24 12:58 60 MLS/HR Acetaminophen 650 mg Q6HP PRN IA 11/23/24 22:45 11/24/24 08:00 650 MG Enoxaparin Sodium 40 mg DAILY SC 11/24/24 10:00 11/24/24 07:24 40 MG Piperacillin Sod/ Tazobactam Sod 100 ml @ 25 mls/hr Q8HR IV 11/24/24 14:00 11/24/24 13:30 25 MLS/HR Laboratory Results Laboratory Tests 11/24/24 05:52 Chemistry Test 11/24/24 05:52 11/24/24 08:15 11/24/24 14:39 Albumin 3.0 g/dL (3.2-4.8) L Calcium Level 7.7 mg/dL (8.7-10.4) L Total Protein 5.3 g/dL (5.7-8.2) L Magnesium Level 2.0 mg/dL (1.6-2.6) 2.0 mg/dL (1.6-2.6) LFT Test 11/24/24 05:52 Alanine Aminotransferase (ALT) 19 U/L (7-40) Alkaline Phosphatase 88 U/L (46-116) Aspartate Amino Transferase (AST) 24 U/L (13-40) Total Bilirubin 0.2 mg/dL (0.2-1.0) Urinalysis Test 11/23/24 02:45 Urine Color Light-yellow (Yellow) Urine Clarity Clear (Clear) Urine pH 6.5 (5.0-9.0) Urine Specific [place] 1.009 (1.001-1.035) Urine Protein Trace (Negative) H Urine Ketones Negative (Negative) Urine Blood 1+ /uL (Negative) H Urine Nitrite Negative (Negative) Urine Bilirubin Negative (Negative) Urine Urobilinogen Normal mg/dL (Negative) Urine Leukocyte Esterase Trace /uL (Negative) Urine RBC 8 /hpf (0 - 3) Urine Microscopic WBC 13 /HPF (0-3) H Urine Squamous Epithelial Cells None seen /hpf (<5) Urine Bacteria None seen /hpf (None Seen) Urine Glucose 3+ mg/dL (Normal) H Blood Gas Results Test 11/24/24 07:16 Arterial Blood pH 7.332 (7.350-7.450) FiO2 % 30.0 Microbiology Microbiology Date/Time Source Procedure Growth Status 11/23/24 02:35 Sputum Endotracheal Wash Gram Stain - Final Resulted 11/23/24 02:35 Sputum Endotracheal Wash Respiratory Culture - Preliminary Resulted Assessment/Plan Assessment/Plan Metabolic encephalopathy Altered mental status Disorientation, unspecified Hypoglycemia Hypertensive urgency Generalized weakness Continued mechanical ventilation per ICU levophed to keep MAP >65 IV zosyn blood cx critical care time was 68 minutes Plan discussed with: Daughter My Orders Orders - EMILY PALACIOS MD Procedure Category Date Status Time Blood Culture IVONNE 11/24/24 In Process 12:09 Piperacillin-Tazob PHA 11/24/24 In Process 3.375gm (Zosyn 3.375g 14:00 Urine Bacterial IVONNE 11/24/24 In Process Culture 14:38 Respiratory Culture IVONNE 11/24/24 In Process W/ Gs 14:38 * Wound Consult CONS 11/24/24 Transmitted * Dietary Consult CONS 11/24/24 Transmitted 12:43 Complete Blood Count LAB 11/25/24 Verified 04:00 Comprehensive LAB 11/25/24 Verified Metabolic Panel 04:00 Chest Portable XY 11/25/24 Logged 04:00 Magnesium LAB 11/25/24 Verified 04:00 Mrsa Screen IVONNE 11/24/24 In Process 15:32 Cleanse Wound With KEENAN 11/24/24 In Process Wound Clean 13:30 Apply Barrier Cream KEENAN 11/24/24 In Process 13:30 Date of Service: Nov 24, 2024 Billing Provider: EMILY PALACIOS MD Common Visit Codes: [id number] CARE 30-74 MIN EMILY PALACIOS MD Nov 24, 2024 18:04
--- NOTE | 2024-11-24 18:55 | DVHPN2 ---
Progress Note - Dictate Date Seen: Nov 24, 2024 Medical Necessity Reason Pt with a Central, PICC or Fol: Yes The following are medically ne: Herrera Catheter Reason for herrera catheter: Strict I&O Subjective Patient seen and examined at bedside. Sedated, intubated on mechanical ventilator. Overnight events reviewed. vital signs Vital Sign Date Time Temp Pulse Resp B/P (MAP) Pulse Ox O2 Delivery O2 Flow Rate FiO2 11/24/24 18:30 100.0 71 16 115/61 (79) 100 212.0 11/24/24 17:41 30 11/24/24 17:40 Mechanical Ventilator+ 11/23/24 00:05 0 Total Intake and Output 11/23/24 11/23/24 11/24/24 15:00 23:00 07:00 Intake Total 866.325 ml 690.215 ml 958.9840 ml Output Total 380 ml Balance 866.325 ml 310.215 ml 958.9840 ml medications Current Medications Medications Dose Ordered Sig/Eneida Route Start Time Stop Time Status Last Admin Dose Admin Propofol 100 ml @ 2.04 mls/hr Q24H IV 11/23/24 02:55 11/24/24 15:43 14.28 MLS/HR Fentanyl Citrate 250 ml @ 2.5 mls/hr Q24H IV 11/23/24 04:00 11/24/24 08:56 25 MLS/HR Famotidine 20 mg Q12HR IV 11/23/24 10:00 11/24/24 07:23 20 MG Diagnostic Test (Pha) 1 strip ACHS 11/23/24 07:00 11/24/24 16:12 1 STRIP Insulin Human Regular ACHS SC 11/23/24 07:00 Dextrose 50 ml UD PRN IV 11/23/24 04:15 Ondansetron HCl 4 mg Q4HP PRN IV 11/23/24 04:15 Nitroglycerin 0.4 mg Q5MINP PRN SL 11/23/24 04:15 Morphine Sulfate 2 mg Q30M PRN IV 11/23/24 04:15 Hydralazine HCl 10 mg Q6HP PRN IV 11/23/24 05:15 Norepinephrine Bitartrate 250 ml @ 18.75 mls/ hr [id number] IV 11/23/24 05:15 11/23/24 05:23 18.75 MLS/HR Dextrose 1,000 ml @ 60 mls/hr [id number] IV 11/23/24 20:30 11/24/24 12:58 60 MLS/HR Acetaminophen 650 mg Q6HP PRN AR 11/23/24 22:45 11/24/24 08:00 650 MG Enoxaparin Sodium 40 mg DAILY SC 11/24/24 10:00 11/24/24 07:24 40 MG Piperacillin Sod/ Tazobactam Sod 100 ml @ 25 mls/hr Q8HR IV 11/24/24 14:00 11/24/24 13:30 25 MLS/HR objective Gen.: Patient lying in bed in medical ICU. Sedated, intubated on mechanical ventilator. Head: Normocephalic, atraumatic. Eyes: PERRLA. Ears: Normal external anatomy. Throat: Endotracheal tube and orogastric tube in place. Neck: Supple, trachea midline. Chest: Transmitted breath sounds bilaterally. Decreased air entry bilaterally. No wheezing. Bibasilar crackles. Cardiovascular: Positive S1, positive S2. Regular rate and rhythm. Abdomen: Positive bowel sounds in all 4 quadrants. Soft, nontender, nondistended. : Herrera in place. Normal external genitalia. Rectal: Deferred. Skin: Warm, dry. Intact. Extremities: 2+ radial pulses bilaterally. No lower extremity edema. Neuro: Sedated. laboratory and microbiology Laboratory Tests 11/24/24 05:52 Test 11/24/24 05:52 Range/Units Serum Glucose 85 74-106 mg/dL Assessment/Plan Impression: Acute hypoxic respiratory failure On mechanical ventilator Acute metabolic encephalopathy Altered mental status Hypoglycemia Hypertensive urgency Generalized weakness Shock Events: Remains on vent support On AC mode; RR 12, VT 450, PEEP 5, FiO2 of 30% Increase RR to 16 CXR image and report reviewed. Mild pulmonary vascular congestion. Devices in place. ABG reviewed, notable for acidemia d/t CO2 retention Sedated on Propofol, Fentanyl Start antibiotics F/u cultures Monitor hemoglobin - 11.6 g/dL On pressors for hemodynamic support Levophed 2 mcg/min Titrate to keep mean arterial pressure greater than 65 mmHg. IV fluids with D5W at 60 ml/hr due to hypoglycemia Monitor renal function Monitor electrolytes. Supplement as necessary. Supplement potassium Accu-Cheks, insulin sliding scale. GI prophylaxis - Pepcid BID Labs and imaging reviewed. Rest of plan as noted below. Plan: s/p intubation on mechanical ventilator. On AC mode; RR 12, VT 450, PEEP 5, FiO2 of 30% Increase RR to 16 Titrate FIO2 to keep O2 saturation above 90%. VAP bundle. Daily ABG and CXR while intubated Sedate for ventilator synchrony On pressors for hemodynamic support Titrate to keep mean arterial pressure greater than 65 mmHg. Start antibiotics Accu-Cheks, insulin sliding scale. Monitor renal function Monitor electrolytes. Supplement as necessary. Monitor ins and outs. GI prophylaxis - Pepcid BID Prognosis: Poor given patient's multiple co-morbidities. Condition: Critical Rest of plan per hospitalist and other consultants. A total of 35 minutes of critical care time was spent reviewing the patient record, examining the patient, making a diagnostic and therapeutic plan, discussing this plan with the medical personnel, following up on diagnostic studies and following the patient for clinical stability excluding any and all procedures. At least 50% of this time was spent in direct, [id number] contact. Thank you, Dr. Driscoll, for allowing me to participate in this patient's care. Further recommendations will depend on the patient's clinical course. Please do not hesitate to contact me if you have any questions or concerns. This medical document was created using an electronic medical record system with [employer] dictation system. Although these documentations are being carefully reviewed, there may still be some phonetic and typographical changes. The errors are purely typographical, due to imperfection on the software program, and do not reflect any compromise in the patient's medical care. Dietary Evaluation Review Comments: 1) IF GI route is preferred, consider Glucerna 1.2 @ 50 mL/hr goal rate as tolerated. Goal rate will provide 1440 kcals, 72g Pro, and 864 free H2O per 24 hours. Goal rate will meet 85% daily estimated energy needs and 85% daily estimated protein eneds. 2) If patient remains NPO for more than 7 days, consider TPN to meet at least 75% of estimated needs 3) Advance patient when medically feasible to 60g CCHO diet, pending [employer] approval 4) Current plan of care Expected Outcomes/Goals: 1) Patient to receive nutritional support within 7 days 2) appetite and labs to improve 3) diet to advance 4) f/u in 3 days Plan discussed with: Other (KERMIT Conklin) Critical Care Time(min): 35 MICKEY RUFF MD Nov 24, 2024 18:55
[2024-11-25] VITALS (89 sets, daily range): BP systolic 88–168; BP diastolic 43–87; PULSE 60–100; RESP 12–21; TEMP 97.7–99.7; O2SAT 97–100
--- NOTE | 2024-11-25 05:02 | DVH ---
EXAM: XY CHEST PORTABLE HISTORY: INTUBATED COMPARISON: XY CHEST PORTABLE on DOS: 11/23/24, XY CHEST PORTABLE on DOS: 11/23/24 TECHNIQUE: Portable upright AP view of the chest was performed. FINDINGS: Endotracheal tube is re-identified with its tip 4.8 cm above the osmin. OG tube is re-identified. No pneumothorax or consolidative infiltrates. There is mild central interstitial prominence, improved since the previous chest x-ray. The heart is borderline enlarged. IMPRESSION: 1. Mechanical ventilation with tubes and lines as above. 2. Mild central interstitial prominence may be due to reactive airways disease or mild CHF.
[2024-11-25 05:34] LABS: Basophils # (auto) 0 10 ^3/uL (0-0.2); Basophils % (auto) 0.6 % (0.0-2.0); Eosinophils # (auto) 0.4 10 ^3/uL (0-0.8); Eosinophils % (auto) 4.7 % (0.0-7.0); Hematocrit 33.6 % (41.0-53.0); Hemoglobin 11.1 g/dL (13.5-17.5); Lymphocytes # (auto) 1.9 10 ^3/uL (0.4-5.4); Lymphocytes % (auto) 23.6 % (10.0-50.0); Mean Corpuscular Hemoglobin 29.4 pg (28.0-32.0); Mean Corpuscular Hgb Conc. 32.9 g/dL (32.0-36.0); Mean Corpuscular Volume 89.2 fL (80.0-100.0); Monocytes # (auto) 0.9 10 ^3/uL (0-1.3); Monocytes % (auto) 11.3 % (0.0-12.0); Neutrophils # (auto) 4.7 10 ^3/uL (1.6-8.6); Neutrophils % (auto) 59.8 % (37.0-80.0); Platelet Count (auto) 200 10^3/uL (140-450); Red Blood Cells 3.77 10^6/uL (4.5-5.90); Red Cell Distribution Width 14.7 % (11.8-14.3); White Blood Cell 7.9 10^3/uL (4.4-10.8)
[2024-11-25 05:45] LABS: Alanine Aminotransferase 17 U/L (7-40); Alkaline Phosphatase 102 U/L (46-116); Anion Gap 7 (5-15); Aspartate Aminotransferase 24 U/L (13-40); Bilirubin, Total 0.4 mg/dL (0.2-1.0); Blood Urea Nitrogen 10 mg/dL (9-23); Carbon Dioxide 26 mmol/L (20-31); Sodium 141 mmol/L (136-145)
[2024-11-25 05:58] LABS: Calcium 7.8 mg/dL (8.7-10.4); Chloride 108 mmol/L (98-107); Glucose 147 mg/dL (74-106); Total Protein 5.2 g/dL (5.7-8.2)
[2024-11-25 07:08] LABS: Base Excess 0.5 mmol/L (-2.0-3.0)
--- NOTE | 2024-11-25 14:35 | DVHPN2 ---
Subjective in bed intubated and sedated Changes from previous H/P or p: No Changes Eyes: No Pain, No Vision change, No Conjunctivae inflammation, No Eyelid inflammation, No Other, No Redness ENT: No Ear pain, No Ear discharge, No Nose pain, No Nose discharge, No Nose congestion, No Mouth pain, No Mouth swelling, No Throat pain, No Throat swelling, No Other Cardiovascular: No Chest Pain, No Palpitations, No Orthopnea, No Paroxysmal Noc. Dyspnea, No Edema, No Lt Headedness, No Other Respiratory: No Cough, No Dry; Shortness of breath; No SOB with excertion, No Wheezing, No Hemoptysis, No Pleuritic Pain, No Sputum, No Other Gastrointestinal: No Nausea, No Vomiting, No Abdominal Pain, No Diarrhea, No Constipation, No Melena, No Hematochezia, No Other Genitourinary: No Dysuria, No Frequency, No Incontinence, No Hematuria, No Retention, No Other Musculoskeletal: No other, No neck pain, No shoulder pain, No arm pain, No back pain, No hand pain, No leg pain, No foot pain Skin: No Rash, No Lesions, No Jaundice, No Bruising, No Other Objective Vitals Vital Signs Date Time Temp Pulse Resp B/P (MAP) Pulse Ox O2 Delivery O2 Flow Rate FiO2 11/25/24 14:30 76 16 135/68 (90) 99 11/25/24 14:10 30 11/25/24 12:00 Mechanical Ventilator+ 11/25/24 12:00 98.2 98.2 Intake/Output Intake and Output 11/25/24 07:00 Intake Total 2809.019 ml Output Total 2400 ml Balance 409.019 ml Intake Oral 10 ml IV Total 2799.019 ml Output Urine Total 2400 ml # Bowel Movements 1 General Appearance: Other (intubated and sedated) Cardiovascular: Regular rate Extremities: No edema Medications Current Medications Medications Dose Ordered Sig/Eneida Route Start Time Stop Time Status Last Admin Dose Admin Propofol 100 ml @ 2.04 mls/hr Q24H IV 11/23/24 02:55 11/25/24 05:52 14.28 MLS/HR Fentanyl Citrate 250 ml @ 2.5 mls/hr Q24H IV 11/23/24 04:00 11/25/24 06:48 12.5 MLS/HR Famotidine 20 mg Q12HR IV 11/23/24 10:00 11/25/24 10:04 20 MG Diagnostic Test (Pha) 1 strip ACHS 11/23/24 07:00 11/25/24 11:45 1 STRIP Insulin Human Regular ACHS SC 11/23/24 07:00 11/25/24 11:43 3 UNITS Dextrose 50 ml UD PRN IV 11/23/24 04:15 Ondansetron HCl 4 mg Q4HP PRN IV 11/23/24 04:15 Nitroglycerin 0.4 mg Q5MINP PRN SL 11/23/24 04:15 Morphine Sulfate 2 mg Q30M PRN IV 11/23/24 04:15 Hydralazine HCl 10 mg Q6HP PRN IV 11/23/24 05:15 Norepinephrine Bitartrate 250 ml @ 18.75 mls/ hr [id number] IV 11/23/24 05:15 11/25/24 10:51 0.938 MLS/HR Dextrose 1,000 ml @ 60 mls/hr [id number] IV 11/23/24 20:30 11/25/24 05:35 60 MLS/HR Acetaminophen 650 mg Q6HP PRN ID 11/23/24 22:45 11/24/24 19:50 650 MG Enoxaparin Sodium 40 mg DAILY SC 11/24/24 10:00 11/25/24 10:05 40 MG Piperacillin Sod/ Tazobactam Sod 100 ml @ 25 mls/hr Q8HR IV 11/24/24 14:00 11/25/24 13:20 25 MLS/HR Dexmedetomidine HCl 400 mcg/ Dextrose 100 ml @ 3.4 mls/hr Q24H IV 11/25/24 09:15 11/25/24 09:46 3.4 MLS/HR Laboratory Results Laboratory Tests 11/25/24 05:00 Chemistry Test 11/24/24 14:39 11/25/24 05:00 Magnesium Level 2.0 mg/dL (1.6-2.6) 2.0 mg/dL (1.6-2.6) Albumin 3.0 g/dL (3.2-4.8) L Calcium Level 7.8 mg/dL (8.7-10.4) L Total Protein 5.2 g/dL (5.7-8.2) L LFT Test 11/25/24 05:00 Alanine Aminotransferase (ALT) 17 U/L (7-40) Alkaline Phosphatase 102 U/L (46-116) Aspartate Amino Transferase (AST) 24 U/L (13-40) Total Bilirubin 0.4 mg/dL (0.2-1.0) Urinalysis Test 11/23/24 02:45 Urine Color Light-yellow (Yellow) Urine Clarity Clear (Clear) Urine pH 6.5 (5.0-9.0) Urine Specific [place] 1.009 (1.001-1.035) Urine Protein Trace (Negative) H Urine Ketones Negative (Negative) Urine Blood 1+ /uL (Negative) H Urine Nitrite Negative (Negative) Urine Bilirubin Negative (Negative) Urine Urobilinogen Normal mg/dL (Negative) Urine Leukocyte Esterase Trace /uL (Negative) Urine RBC 8 /hpf (0 - 3) Urine Microscopic WBC 13 /HPF (0-3) H Urine Squamous Epithelial Cells None seen /hpf (<5) Urine Bacteria None seen /hpf (None Seen) Urine Glucose 3+ mg/dL (Normal) H Blood Gas Results Test 11/25/24 07:03 Arterial Blood pH 7.411 (7.350-7.450) FiO2 % 30.0 Microbiology Microbiology Date/Time Source Procedure Growth Status 11/24/24 15:30 Nose MRSA Screen - Final Complete 11/24/24 14:30 Urine - [place] Urine Culture - Preliminary Resulted 11/24/24 14:21 Sputum Gram Stain Pending Resulted 11/24/24 14:21 Sputum Respiratory Culture - Preliminary Resulted 11/24/24 13:05 Blood Blood Culture - Preliminary NO GROWTH AFTER 24 HOURS OF INCUBATION. Resulted Assessment/Plan Assessment/Plan Metabolic encephalopathy Altered mental status Disorientation, unspecified Hypoglycemia Hypertensive urgency Generalized weakness Continued mechanical ventilation per ICU levophed to keep MAP >65 IV zosyn blood cx critical care time was 68 minutes Plan discussed with: Spouse My Orders Orders - EMILY PALACIOS MD Procedure Category Date Status Time Cleanse Wound With KEENAN 11/24/24 In Process Wound Clean 13:30 Apply Barrier Cream KEENAN 11/24/24 In Process 13:30 Date of Service: Nov 25, 2024 Billing Provider: EMILY PALACIOS MD Common Visit Codes: [id number] CARE 30-74 MIN EMILY PALACIOS MD Nov 25, 2024 14:35
--- NOTE | 2024-11-25 22:27 | DVHPN2 ---
Progress Note - Dictate Date Seen: Nov 25, 2024 Medical Necessity Reason Pt with a Central, PICC or Fol: Yes The following are medically ne: Herrera Catheter Reason for herrera catheter: Strict I&O Subjective Patient seen and examined at bedside. Sedated, intubated on mechanical ventilator. Overnight events reviewed. vital signs Vital Sign Date Time Temp Pulse Resp B/P (MAP) Pulse Ox O2 Delivery O2 Flow Rate FiO2 11/25/24 20:45 73 16 94/52 (66) 98 11/25/24 20:15 30 11/25/24 19:30 99.8 99.8 11/25/24 19:30 Mechanical Ventilator+ Total Intake and Output 11/24/24 11/24/24 11/25/24 15:00 23:00 07:00 Intake Total 1049.961 ml 910.806 ml 848.252 ml Output Total 1600 ml 800 ml Balance 1049.961 ml -689.194 ml 48.252 ml medications Current Medications Medications Dose Ordered Sig/Eneida Route Start Time Stop Time Status Last Admin Dose Admin Propofol 100 ml @ 2.04 mls/hr Q24H IV 11/23/24 02:55 11/25/24 05:52 14.28 MLS/HR Fentanyl Citrate 250 ml @ 2.5 mls/hr Q24H IV 11/23/24 04:00 11/25/24 06:48 12.5 MLS/HR Famotidine 20 mg Q12HR IV 11/23/24 10:00 11/25/24 22:08 20 MG Diagnostic Test (Pha) 1 strip ACHS 11/23/24 07:00 11/25/24 22:01 1 STRIP Insulin Human Regular ACHS SC 11/23/24 07:00 11/25/24 21:44 3 UNITS Dextrose 50 ml UD PRN IV 11/23/24 04:15 Ondansetron HCl 4 mg Q4HP PRN IV 11/23/24 04:15 Nitroglycerin 0.4 mg Q5MINP PRN SL 11/23/24 04:15 Morphine Sulfate 2 mg Q30M PRN IV 11/23/24 04:15 Hydralazine HCl 10 mg Q6HP PRN IV 11/23/24 05:15 Norepinephrine Bitartrate 250 ml @ 18.75 mls/ hr [id number] IV 11/23/24 05:15 11/25/24 10:51 0.938 MLS/HR Dextrose 1,000 ml @ 60 mls/hr [id number] IV 11/23/24 20:30 11/25/24 05:35 60 MLS/HR Acetaminophen 650 mg Q6HP PRN OR 11/23/24 22:45 11/24/24 19:50 650 MG Enoxaparin Sodium 40 mg DAILY SC 11/24/24 10:00 11/25/24 10:05 40 MG Piperacillin Sod/ Tazobactam Sod 100 ml @ 25 mls/hr Q8HR IV 11/24/24 14:00 11/25/24 22:09 25 MLS/HR Dexmedetomidine HCl 400 mcg/ Dextrose 100 ml @ 3.4 mls/hr Q24H IV 11/25/24 09:15 11/25/24 09:46 3.4 MLS/HR objective Gen.: Patient lying in bed in medical ICU. Sedated, intubated on mechanical ventilator. Head: Normocephalic, atraumatic. Eyes: PERRLA. Ears: Normal external anatomy. Throat: Endotracheal tube and orogastric tube in place. Neck: Supple, trachea midline. Chest: Transmitted breath sounds bilaterally. Decreased air entry bilaterally. No wheezing. Bibasilar crackles. Cardiovascular: Positive S1, positive S2. Regular rate and rhythm. Abdomen: Positive bowel sounds in all 4 quadrants. Soft, nontender, nondistended. : Herrera in place. Normal external genitalia. Rectal: Deferred. Skin: Warm, dry. Intact. Extremities: 2+ radial pulses bilaterally. No lower extremity edema. Neuro: Sedated. laboratory and microbiology Laboratory Tests 11/25/24 05:00 Test 11/25/24 05:00 Range/Units Serum Glucose 147 H 74-106 mg/dL Assessment/Plan Impression: Acute hypoxic respiratory failure On mechanical ventilator Acute metabolic encephalopathy Altered mental status Hypoglycemia Hypertensive urgency Generalized weakness Shock Events: Remains on vent support On AC mode; RR 16, VT 450, PEEP 5, FiO2 of 30% CXR image and report reviewed. Mild pulmonary vascular congestion. Devices in place. No acute changes compared to previous. ABG reviewed, compensated Patient tolerated CPAP CPAP ABG demonstrates compensation Awaiting for mentation to improve Sedated on Propofol, Fentanyl Continue antibiotics Blood cultures, no growth after 24 hours Sputum cultures grew normal oropharyngeal phillip Urine cultures, no growth Monitor hemoglobin - 11.1 g/dL Off Levophed, hemodynamically stable. Monitor renal function Monitor electrolytes. Supplement as necessary. Supplement potassium Accu-Cheks, insulin sliding scale. GI prophylaxis - Pepcid BID Labs and imaging reviewed. Rest of plan as noted below. Plan: s/p intubation on mechanical ventilator. On AC mode; RR 16, VT 450, PEEP 5, FiO2 of 30% Titrate FIO2 to keep O2 saturation above 90%. VAP bundle. Daily ABG and CXR while intubated Sedate for ventilator synchrony Pressors if necessary for hemodynamic support Titrate to keep mean arterial pressure greater than 65 mmHg. Continue antibiotics Accu-Cheks, insulin sliding scale. Monitor renal function Monitor electrolytes. Supplement as necessary. Monitor ins and outs. GI prophylaxis - Pepcid BID Prognosis: Poor given patient's multiple co-morbidities. Condition: Critical Rest of plan per hospitalist and other consultants. A total of 35 minutes of critical care time was spent reviewing the patient record, examining the patient, making a diagnostic and therapeutic plan, discussing this plan with the medical personnel, following up on diagnostic studies and following the patient for clinical stability excluding any and all procedures. At least 50% of this time was spent in direct, [id number] contact. Thank you, Dr. Driscoll, for allowing me to participate in this patient's care. Further recommendations will depend on the patient's clinical course. Please do not hesitate to contact me if you have any questions or concerns. This medical document was created using an electronic medical record system with [employer] dictation system. Although these documentations are being carefully reviewed, there may still be some phonetic and typographical changes. The errors are purely typographical, due to imperfection on the software program, and do not reflect any compromise in the patient's medical care. Dietary Evaluation Review Comments: 1) IF GI route is preferred, consider Glucerna 1.2 @ 50 mL/hr goal rate as tolerated. Goal rate will provide 1440 kcals, 72g Pro, and 864 free H2O per 24 hours. Goal rate will meet 85% daily estimated energy needs and 85% daily estimated protein eneds. 2) If patient remains NPO for more than 7 days, consider TPN to meet at least 75% of estimated needs 3) Advance patient when medically feasible to 60g CCHO diet, pending [employer] approval 4) Current plan of care Expected Outcomes/Goals: 1) Patient to receive nutritional support within 7 days 2) appetite and labs to improve 3) diet to advance 4) f/u in 3 days Plan discussed with: Other (RN) Critical Care Time(min): 35 MICKEY RUFF MD Nov 25, 2024 22:27
[2024-11-26] VITALS (59 sets, daily range): BP systolic 84–168; BP diastolic 44–84; PULSE 67–87; RESP 7–18; TEMP 98–100.3; O2SAT 96–100
[2024-11-26 07:21] LABS: Base Excess -1.2 mmol/L (-2.0-3.0)
[2024-11-26] MEDS: NOREPINEPHRINE 8 MG/250ML KIT 250 ML IV SCH (09:30)
--- NOTE | 2024-11-26 09:48 | DVH ---
Procedure: XY CHEST PORTABLE 11/26/2024 08:55 AM Indication: PT INTUBATED Comparison: XY CHEST PORTABLE on DOS: 11/25/24, XY CHEST PORTABLE on DOS: 11/23/24, XY CHEST PORTABLE o n DOS: 11/23/24 TECHNIQUE: XY CHEST PORTABLE FINDINGS: Medical devices: The ETT ends 5.3 cm above the osmin. Enteric tube extends to the stomach which sadiq ears coiled in the gastric fundus may be returning to distal esophagus. Cardiomediastinal: The heart is normal in size. Pulmonary vasculature is within normal limits. Lungs: No focal pulmonary opacity is seen. The costophrenic angles are clear. No pneumothorax. Bones/soft tissues: No acute abnormality is noted. IMPRESSION: 1. No acute cardiopulmonary disease.The ETT 2. Is in satisfactory position. 3. The enteric tube is coiled in the gastric fundus and seems to be returning to distal esophagus. S uggest repositioning.
[2024-11-26 10:03] LABS: Chloride 102 mmol/L (98-107); Potassium 3.9 mmol/L (3.5-5.1)
[2024-11-26 10:04] LABS: Anion Gap 7 (5-15); Carbon Dioxide 27 mmol/L (20-31)
[2024-11-26 10:07] LABS: Basophils # (auto) 0.1 10 ^3/uL (0-0.2); Eosinophils # (auto) 0.2 10 ^3/uL (0-0.8); Eosinophils % (auto) 2.9 % (0.0-7.0); Hematocrit 32.7 % (41.0-53.0); Hemoglobin 10.8 g/dL (13.5-17.5); Lymphocytes # (auto) 1.4 10 ^3/uL (0.4-5.4); Lymphocytes % (auto) 17.1 % (10.0-50.0); Mean Corpuscular Hemoglobin 29.1 pg (28.0-32.0); Mean Corpuscular Hgb Conc. 32.9 g/dL (32.0-36.0); Mean Corpuscular Volume 88.5 fL (80.0-100.0); Monocytes # (auto) 0.7 10 ^3/uL (0-1.3); Neutrophils # (auto) 5.6 10 ^3/uL (1.6-8.6); Platelet Count (auto) 199 10^3/uL (140-450); Red Cell Distribution Width 14.3 % (11.8-14.3); White Blood Cell 7.9 10^3/uL (4.4-10.8)
[2024-11-26 10:10] LABS: BUN/Creatinine Ratio 9.6 (10.0-20.0); Blood Urea Nitrogen 10 mg/dL (9-23)
[2024-11-26 10:11] LABS: Calcium 7.3 mg/dL (8.7-10.4); Glucose 223 mg/dL (74-106); Sodium 136 mmol/L (136-145)
[2024-11-26 11:50] LABS: Base Excess 1.3 mmol/L (-2.0-3.0)
[2024-11-26] MEDS: ONDANSETRON HCL 4 MG/2 ML VIAL IV PRN (12:31)
[2024-11-26] MEDS: METOCLOPRAMIDE HCL 5MG/ml INJ 2ml VIAL ONE (14:37)
[2024-11-26] MEDS: ALBUTEROL SULF 2.5 MG/0.5ML(0.5%) NEB SOLN NEB ONE (15:40)
[2024-11-26] MEDS: METOCLOPRAMIDE HCL 5MG/ml INJ 2ml VIAL IV ONE (16:04)
--- NOTE | 2024-11-26 17:39 | DVHPN2 ---
Subjective in bed intubated, breathing spontaneously with ventilator, follows commands Changes from previous H/P or p: No Changes Eyes: No Pain, No Vision change, No Conjunctivae inflammation, No Eyelid inflammation, No Other, No Redness ENT: No Ear pain, No Ear discharge, No Nose pain, No Nose discharge, No Nose congestion, No Mouth pain, No Mouth swelling, No Throat pain, No Throat swelling, No Other Cardiovascular: No Chest Pain, No Palpitations, No Orthopnea, No Paroxysmal Noc. Dyspnea, No Edema, No Lt Headedness, No Other Respiratory: No Cough, No Dry; Shortness of breath; No SOB with excertion, No Wheezing, No Hemoptysis, No Pleuritic Pain, No Sputum, No Other Gastrointestinal: No Nausea, No Vomiting, No Abdominal Pain, No Diarrhea, No Constipation, No Melena, No Hematochezia, No Other Genitourinary: No Dysuria, No Frequency, No Incontinence, No Hematuria, No Retention, No Other Musculoskeletal: No other, No neck pain, No shoulder pain, No arm pain, No back pain, No hand pain, No leg pain, No foot pain Skin: No Rash, No Lesions, No Jaundice, No Bruising, No Other Objective Vitals Vital Signs Date Time Temp Pulse Resp B/P (MAP) Pulse Ox O2 Delivery O2 Flow Rate FiO2 11/26/24 16:45 82 15 109/56 (73) 100 11/26/24 16:00 98.0 98.0 11/26/24 16:00 Nasal Cannula* 2 28 Intake/Output Intake and Output 11/26/24 07:00 Intake Total 1807.468 ml Output Total 750 ml Balance 1057.468 ml Intake Oral 0 ml IV Total 1807.468 ml Output Urine Total 550 ml Gastric Drainage Total 200 ml # Bowel Movements 2 General Appearance: Other (intubated and sedated) Cardiovascular: Regular rate Extremities: No edema Medications Current Medications Medications Dose Ordered Sig/Eneida Route Start Time Stop Time Status Last Admin Dose Admin Propofol 100 ml @ 2.04 mls/hr Q24H IV 11/23/24 02:55 11/25/24 05:52 14.28 MLS/HR Fentanyl Citrate 250 ml @ 2.5 mls/hr Q24H IV 11/23/24 04:00 11/25/24 06:48 12.5 MLS/HR Famotidine 20 mg Q12HR IV 11/23/24 10:00 11/26/24 09:47 20 MG Diagnostic Test (Pha) 1 strip ACHS 11/23/24 07:00 11/26/24 11:30 1 STRIP Insulin Human Regular ACHS SC 11/23/24 07:00 11/26/24 11:30 4 UNITS Dextrose 50 ml UD PRN IV 11/23/24 04:15 Ondansetron HCl 4 mg Q4HP PRN IV 11/23/24 04:15 11/26/24 12:31 4 MG Nitroglycerin 0.4 mg Q5MINP PRN SL 11/23/24 04:15 Morphine Sulfate 2 mg Q30M PRN IV 11/23/24 04:15 Hydralazine HCl 10 mg Q6HP PRN IV 11/23/24 05:15 Dextrose 1,000 ml @ 60 mls/hr [id number] IV 11/23/24 20:30 11/26/24 16:04 60 MLS/HR Acetaminophen 650 mg Q6HP PRN [place] 11/23/24 22:45 11/24/24 19:50 650 MG Enoxaparin Sodium 40 mg DAILY SC 11/24/24 10:00 11/26/24 09:47 40 MG Piperacillin Sod/ Tazobactam Sod 100 ml @ 25 mls/hr Q8HR IV 11/24/24 14:00 11/26/24 14:27 25 MLS/HR Dexmedetomidine HCl 400 mcg/ Dextrose 100 ml @ 3.4 mls/hr Q24H IV 11/25/24 09:15 11/26/24 07:57 3.4 MLS/HR Norepinephrine Bitartrate 250 ml @ 0.938 mls/ hr Q24H IV 11/26/24 09:30 11/26/24 09:30 0.938 MLS/HR Laboratory Results Laboratory Tests 11/26/24 09:24 Chemistry Test 11/26/24 09:24 Calcium Level 7.3 mg/dL (8.7-10.4) L Urinalysis Test 11/23/24 02:45 Urine Color Light-yellow (Yellow) Urine Clarity Clear (Clear) Urine pH 6.5 (5.0-9.0) Urine Specific [place] 1.009 (1.001-1.035) Urine Protein Trace (Negative) H Urine Ketones Negative (Negative) Urine Blood 1+ /uL (Negative) H Urine Nitrite Negative (Negative) Urine Bilirubin Negative (Negative) Urine Urobilinogen Normal mg/dL (Negative) Urine Leukocyte Esterase Trace /uL (Negative) Urine RBC 8 /hpf (0 - 3) Urine Microscopic WBC 13 /HPF (0-3) H Urine Squamous Epithelial Cells None seen /hpf (<5) Urine Bacteria None seen /hpf (None Seen) Urine Glucose 3+ mg/dL (Normal) H Blood Gas Results Test 11/26/24 07:15 11/26/24 11:41 Arterial Blood pH 7.376 (7.350-7.450) 7.430 (7.350-7.450) FiO2 % 30.0 30.0 Microbiology Microbiology Date/Time Source Procedure Growth Status 11/24/24 15:30 Nose MRSA Screen - Final Complete 11/24/24 14:30 Urine - [place] Urine Culture - Preliminary Resulted 11/24/24 14:21 Sputum Gram Stain - Final Resulted 11/24/24 14:21 Sputum Respiratory Culture - Preliminary Resulted 11/24/24 13:05 Blood Blood Culture - Preliminary NO GROWTH AFTER 48 HOURS OF INCUBATION. Resulted Assessment/Plan Assessment/Plan Metabolic encephalopathy Altered mental status Disorientation, unspecified Hypoglycemia Hypertensive urgency Generalized weakness Continued mechanical ventilation per ICU levophed to keep MAP >65 IV zosyn blood cx so far negative critical care time was 68 minutes Plan discussed with: Spouse Date of Service: Nov 26, 2024 Billing Provider: EMILY PALACIOS MD Common Visit Codes: [id number] CARE 30-74 MIN EMILY PALACIOS MD Nov 26, 2024 17:39
--- NOTE | 2024-11-26 22:05 | DVHPN2 ---
Progress Note - Dictate Date Seen: Nov 26, 2024 Medical Necessity Reason Pt with a Central, PICC or Fol: Yes The following are medically ne: Herrera Catheter Reason for herrera catheter: Strict I&O Subjective Patient seen and examined at bedside. S/p extubation, on supplemental oxygen Overnight events reviewed. vital signs Vital Sign Date Time Temp Pulse Resp B/P (MAP) Pulse Ox O2 Delivery O2 Flow Rate FiO2 11/26/24 18:45 83 11 131/69 (89) 99 11/26/24 18:00 Mechanical Ventilator+ 30 30 11/26/24 16:00 98.0 98.0 11/26/24 16:00 2 Total Intake and Output 11/25/24 11/25/24 11/26/24 15:00 23:00 07:00 Intake Total 823.968 ml 368.5 ml 615 ml Output Total 750 ml Balance 823.968 ml -381.5 ml 615 ml medications Current Medications Medications Dose Ordered Sig/Eneida Route Start Time Stop Time Status Last Admin Dose Admin Propofol 100 ml @ 2.04 mls/hr Q24H IV 11/23/24 02:55 11/25/24 05:52 14.28 MLS/HR Fentanyl Citrate 250 ml @ 2.5 mls/hr Q24H IV 11/23/24 04:00 11/25/24 06:48 12.5 MLS/HR Famotidine 20 mg Q12HR IV 11/23/24 10:00 11/26/24 09:47 20 MG Diagnostic Test (Pha) 1 strip ACHS 11/23/24 07:00 11/26/24 17:00 1 STRIP Insulin Human Regular ACHS SC 11/23/24 07:00 11/26/24 17:00 6 UNITS Dextrose 50 ml UD PRN IV 11/23/24 04:15 Ondansetron HCl 4 mg Q4HP PRN IV 11/23/24 04:15 11/26/24 12:31 4 MG Nitroglycerin 0.4 mg Q5MINP PRN SL 11/23/24 04:15 Morphine Sulfate 2 mg Q30M PRN IV 11/23/24 04:15 Hydralazine HCl 10 mg Q6HP PRN IV 11/23/24 05:15 Dextrose 1,000 ml @ 60 mls/hr [id number] IV 11/23/24 20:30 11/26/24 16:04 60 MLS/HR Acetaminophen 650 mg Q6HP PRN [place] 11/23/24 22:45 11/24/24 19:50 650 MG Enoxaparin Sodium 40 mg DAILY SC 11/24/24 10:00 11/26/24 09:47 40 MG Piperacillin Sod/ Tazobactam Sod 100 ml @ 25 mls/hr Q8HR IV 11/24/24 14:00 11/26/24 14:27 25 MLS/HR Dexmedetomidine HCl 400 mcg/ Dextrose 100 ml @ 3.4 mls/hr Q24H IV 11/25/24 09:15 11/26/24 07:57 3.4 MLS/HR Norepinephrine Bitartrate 250 ml @ 0.938 mls/ hr Q24H IV 11/26/24 09:30 11/26/24 09:30 0.938 MLS/HR objective Gen.: Patient lying in bed in no apparent distress. On supplemental oxygen. Head: Normocephalic, atraumatic. Eyes: EOMI/PERRLA. Ears: Normal hearing. Normal anatomy. Neck/trachea: Trachea midline, supple. Nose: Normal external anatomy. Mouth: Moist mucous membranes. Chest: Decreased air entry bilaterally. Wheezing upon inspiration, left. Right side clear/diminished. No stridor. No rhonchi. Cardiovascular: Positive S1, positive S2. Regular rate and rhythm. Abdomen: Positive bowel sounds in all 4 quadrants. Soft, non-tender, non- distended. : Deferred. Rectal: Deferred. Skin: Warm, dry. Intact. Extremities: 2+ radial pulses bilaterally. No lower extremity edema. Neuro: Awake, alert, oriented x3. No gross motor or sensory deficits. Cranial nerves II through XII intact. Gait not assessed. laboratory and microbiology Laboratory Tests 11/26/24 09:24 Test 11/26/24 09:24 Range/Units Serum Glucose 223 H 74-106 mg/dL Assessment/Plan Impression: Acute hypoxic respiratory failure On mechanical ventilator Acute metabolic encephalopathy Altered mental status Hypoglycemia Hypertensive urgency Generalized weakness Shock Events: Off sedation Patient tolerated CPAP CPAP ABG demonstrated compensation Patient was extubated uneventfully today, placed on Cool Mist at 20% 8L RR 14. Remains on supplemental oxygen Bronchodilators for wheezing Continue antibiotics Blood cultures, no growth after 48 hours Sputum cultures grew normal oropharyngeal phillip Urine cultures, no growth Monitor hemoglobin - 10.8 g/dL On pressors for hemodynamic support Levophed 0.5 mcg/min Titrate to keep MAP above 65 mmHg Taper as tolerated Accu-Cheks, insulin sliding scale. GI prophylaxis - Pepcid BID Labs and imaging reviewed. Rest of plan as noted below. Plan: s/p extubation, on supplemental oxygen Titrate to keep O2 sats above 90%. Off sedation Pressors for hemodynamic support Titrate to keep mean arterial pressure greater than 65 mmHg. Continue antibiotics Accu-Cheks, insulin sliding scale. Monitor renal function Monitor electrolytes. Supplement as necessary. Monitor ins and outs. GI prophylaxis - Pepcid BID Prognosis: Guarded given patient's multiple co-morbidities. Condition: Critical Rest of plan per hospitalist and other consultants. A total of 35 minutes of critical care time was spent reviewing the patient record, examining the patient, making a diagnostic and therapeutic plan, discussing this plan with the medical personnel, following up on diagnostic studies and following the patient for clinical stability excluding any and all procedures. At least 50% of this time was spent in direct, [id number] contact. Thank you, Dr. Driscoll, for allowing me to participate in this patient's care. Further recommendations will depend on the patient's clinical course. Please do not hesitate to contact me if you have any questions or concerns. This medical document was created using an electronic medical record system with [employer] dictation system. Although these documentations are being carefully reviewed, there may still be some phonetic and typographical changes. The errors are purely typographical, due to imperfection on the software program, and do not reflect any compromise in the patient's medical care. Dietary Evaluation Review Comments: 1) IF GI route is preferred, consider Glucerna 1.2 @ 50 mL/hr goal rate as tolerated. Goal rate will provide 1440 kcals, 72g Pro, and 864 free H2O per 24 hours. Goal rate will meet 85% daily estimated energy needs and 85% daily estimated protein eneds. 2) If patient remains NPO for more than 7 days, consider TPN to meet at least 75% of estimated needs 3) Advance patient when medically feasible to 60g CCHO diet, pending [employer] approval 4) Current plan of care Expected Outcomes/Goals: 1) Patient to receive nutritional support within 7 days 2) appetite and labs to improve 3) diet to advance 4) f/u in 3 days Plan discussed with: Other (RN) Critical Care Time(min): 35 MICKEY RUFF MD Nov 26, 2024 22:05
--- NOTE | 2024-11-27 18:36 | DVHPN2 ---
Subjective Seen and examined at bedside. on Supplemental oxygen Changes from previous H/P or p: No Changes Eyes: No Pain, No Vision change, No Conjunctivae inflammation, No Eyelid inflammation, No Other, No Redness ENT: No Ear pain, No Ear discharge, No Nose pain, No Nose discharge, No Nose congestion, No Mouth pain, No Mouth swelling, No Throat pain, No Throat swelling, No Other Cardiovascular: No Chest Pain, No Palpitations, No Orthopnea, No Paroxysmal Noc. Dyspnea, No Edema, No Lt Headedness, No Other Respiratory: No Cough, No Dry, No Shortness of breath, No SOB with excertion, No Wheezing, No Hemoptysis, No Pleuritic Pain, No Sputum, No Other Gastrointestinal: No Nausea, No Vomiting, No Abdominal Pain, No Diarrhea, No Constipation, No Melena, No Hematochezia, No Other Genitourinary: No Dysuria, No Frequency, No Incontinence, No Hematuria, No Retention, No Other Musculoskeletal: No other, No neck pain, No shoulder pain, No arm pain, No back pain, No hand pain, No leg pain, No foot pain Skin: No Rash, No Lesions, No Jaundice, No Bruising, No Other Objective Vitals Vital Signs Date Time Temp Pulse Resp B/P (MAP) Pulse Ox O2 Delivery O2 Flow Rate FiO2 11/27/24 18:00 76 16 140/69 (92) 97 11/27/24 16:00 98.4 98.4 11/26/24 23:35 Nasal Cannula* 2 28 Intake/Output Intake and Output 11/27/24 07:00 Intake Total 1461.216 ml Output Total 1750 ml Balance -288.784 ml Intake Oral 0 ml IV Total 1461.216 ml Output Urine Total 1750 ml General Appearance: Alert, Oriented X3, Cooperative, No acute distress, Other (intubated and sedated) HEENT: Atraumatic Lungs: Other (diminished) Cardiovascular: Regular rate Abdomen: Normal bowel sounds, Soft Extremities: No edema Medications Current Medications Medications Dose Ordered Sig/Eneida Route Start Time Stop Time Status Last Admin Dose Admin Famotidine 20 mg Q12HR IV 11/23/24 10:00 11/27/24 10:47 20 MG Diagnostic Test (Pha) 1 strip ACHS 11/23/24 07:00 11/27/24 17:11 1 STRIP Insulin Human Regular ACHS SC 11/23/24 07:00 11/27/24 17:07 3 UNITS Dextrose 50 ml UD PRN IV 11/23/24 04:15 Ondansetron HCl 4 mg Q4HP PRN IV 11/23/24 04:15 11/26/24 12:31 4 MG Nitroglycerin 0.4 mg Q5MINP PRN SL 11/23/24 04:15 Morphine Sulfate 2 mg Q30M PRN IV 11/23/24 04:15 Hydralazine HCl 10 mg Q6HP PRN IV 11/23/24 05:15 Acetaminophen [address] 11/23/24 22:45 11/24/24 19:50 650 MG Enoxaparin Sodium 40 mg DAILY SC 11/24/24 10:00 11/27/24 10:47 40 MG Piperacillin Sod/ Tazobactam Sod 100 ml @ 25 mls/hr Q8HR IV 11/24/24 14:00 11/27/24 15:32 25 MLS/HR Laboratory Results Laboratory Tests 11/26/24 09:24 Urinalysis Test 11/23/24 02:45 Urine Color Light-yellow (Yellow) Urine Clarity Clear (Clear) Urine pH 6.5 (5.0-9.0) Urine Specific [place] 1.009 (1.001-1.035) Urine Protein Trace (Negative) H Urine Ketones Negative (Negative) Urine Blood 1+ /uL (Negative) H Urine Nitrite Negative (Negative) Urine Bilirubin Negative (Negative) Urine Urobilinogen Normal mg/dL (Negative) Urine Leukocyte Esterase Trace /uL (Negative) Urine RBC 8 /hpf (0 - 3) Urine Microscopic WBC 13 /HPF (0-3) H Urine Squamous Epithelial Cells None seen /hpf (<5) Urine Bacteria None seen /hpf (None Seen) Urine Glucose 3+ mg/dL (Normal) H Microbiology Microbiology Date/Time Source Procedure Growth Status 11/24/24 15:30 Nose MRSA Screen - Final Complete 11/24/24 14:30 Urine - [place] Urine Culture - Final Complete 11/24/24 14:21 Sputum Gram Stain - Final Complete 11/24/24 14:21 Sputum Respiratory Culture - Final Complete 11/24/24 13:05 Blood Blood Culture - Preliminary NO GROWTH AFTER 72 HOURS OF INCUBATION. Resulted Assessment/Plan Assessment/Plan Acute hypoxic respiratory failure- s/p extubated Acute metabolic encephalopathy- Monitor Hypoglycemia- Improved Hypertensive urgency- Monitor and adjust meds as needed Shock Plan discussed with: Patient Date of Service: Nov 27, 2024 Billing Provider: IDA PATEL MD Common Visit Codes: [id number] INP/OBS CARE(HIGH) IDA PATEL MD Nov 27, 2024 18:36
[2024-11-27 20:00] VITALS: PULSE 78
[2024-11-27 21:00] VITALS: BP 174/92; PULSE 76; RESP 17; TEMP 98.1; O2SAT 100
--- NOTE | 2024-11-27 22:06 | DVHPN2 ---
Progress Note - Dictate Date Seen: Nov 27, 2024 Medical Necessity Reason Pt with a Central, PICC or Fol: Yes The following are medically ne: Herrera Catheter Reason for herrera catheter: Strict I&O Subjective Patient seen and examined at bedside. Remains on supplemental oxygen Overnight events reviewed. vital signs Vital Sign Date Time Temp Pulse Resp B/P (MAP) Pulse Ox O2 Delivery O2 Flow Rate FiO2 11/27/24 18:00 76 16 140/69 (92) 97 11/27/24 16:00 98.4 98.4 11/26/24 23:35 Nasal Cannula* 2 28 Total Intake and Output 11/26/24 11/26/24 11/27/24 15:00 23:00 07:00 Intake Total 546.208 ml 488.442 ml 426.566 ml Output Total 1750 ml Balance 546.208 ml -1261.558 ml 426.566 ml medications Current Medications Medications Dose Ordered Sig/Eneida Route Start Time Stop Time Status Last Admin Dose Admin Famotidine 20 mg Q12HR IV 11/23/24 10:00 11/27/24 21:26 20 MG Diagnostic Test (Pha) 1 strip ACHS 11/23/24 07:00 11/27/24 21:25 1 STRIP Insulin Human Regular ACHS SC 11/23/24 07:00 11/27/24 17:07 3 UNITS Dextrose 50 ml UD PRN IV 11/23/24 04:15 Ondansetron HCl 4 mg Q4HP PRN IV 11/23/24 04:15 11/26/24 12:31 4 MG Nitroglycerin 0.4 mg Q5MINP PRN SL 11/23/24 04:15 Morphine Sulfate 2 mg Q30M PRN IV 11/23/24 04:15 Hydralazine HCl 10 mg Q6HP PRN IV 11/23/24 05:15 Acetaminophen 650 mg Q6HP PRN NM 11/23/24 22:45 11/24/24 19:50 650 MG Enoxaparin Sodium 40 mg DAILY SC 11/24/24 10:00 11/27/24 10:47 40 MG Piperacillin Sod/ Tazobactam Sod 100 ml @ 25 mls/hr Q8HR IV 11/24/24 14:00 11/27/24 21:41 25 MLS/HR objective Gen.: Patient lying in bed in no apparent distress. On supplemental oxygen. Head: Normocephalic, atraumatic. Eyes: EOMI/PERRLA. Ears: Normal hearing. Normal anatomy. Neck/trachea: Trachea midline, supple. Nose: Normal external anatomy. Mouth: Moist mucous membranes. Chest: Decreased air entry bilaterally. Wheezing upon inspiration, left. Right side clear/diminished. No stridor. No rhonchi. Cardiovascular: Positive S1, positive S2. Regular rate and rhythm. Abdomen: Positive bowel sounds in all 4 quadrants. Soft, non-tender, non- distended. : Deferred. Rectal: Deferred. Skin: Warm, dry. Intact. Extremities: 2+ radial pulses bilaterally. No lower extremity edema. Neuro: Awake, alert, oriented x3. No gross motor or sensory deficits. Cranial nerves II through XII intact. Gait not assessed. laboratory and microbiology Laboratory Tests 11/26/24 09:24 Test 11/26/24 09:24 Range/Units Serum Glucose 223 H 74-106 mg/dL Assessment/Plan Impression: Acute hypoxic respiratory failure Acute metabolic encephalopathy Altered mental status Hypoglycemia Hypertensive urgency Generalized weakness Shock Events: Remains on supplemental oxygen, on 2 LPM NC Taper O2 as tolerated Bronchodilators PRN Continue antibiotics Blood cultures, no growth after 48 hours Sputum cultures grew normal oropharyngeal phillip Urine cultures, no growth Monitor hemoglobin -stable Off pressors since 6 AM Monitor hemodynamics Off Precedex Monitor renal function Monitor electrolytes. Supplement as necessary. Supplement potassium Accu-Cheks, insulin sliding scale. GI prophylaxis - Pepcid BID Labs and imaging reviewed. Rest of plan as noted below. Plan: s/p extubation on 11/26/24 Continue supplemental oxygen Titrate to keep O2 sats above 90%. Pressors if necessary for hemodynamic support Titrate to keep mean arterial pressure greater than 65 mmHg. Continue antibiotics Accu-Cheks, insulin sliding scale. Monitor renal function Monitor electrolytes. Supplement as necessary. Monitor ins and outs. GI prophylaxis - Pepcid BID Prognosis: Guarded given patient's multiple co-morbidities. Condition: Critical Rest of plan per hospitalist and other consultants. A total of 35 minutes of critical care time was spent reviewing the patient record, examining the patient, making a diagnostic and therapeutic plan, discussing this plan with the medical personnel, following up on diagnostic studies and following the patient for clinical stability excluding any and all procedures. At least 50% of this time was spent in direct, [id number] contact. Thank you, Dr. Driscoll, for allowing me to participate in this patient's care. Further recommendations will depend on the patient's clinical course. Please do not hesitate to contact me if you have any questions or concerns. This medical document was created using an electronic medical record system with [employer] dictation system. Although these documentations are being carefully reviewed, there may still be some phonetic and typographical changes. The errors are purely typographical, due to imperfection on the software program, and do not reflect any compromise in the patient's medical care. Dietary Evaluation Review Comments: 1) IF GI route is preferred, consider Glucerna 1.2 @ 50 mL/hr goal rate as tolerated. Goal rate will provide 1440 kcals, 72g Pro, and 864 free H2O per 24 hours. Goal rate will meet 85% daily estimated energy needs and 85% daily estimated protein eneds. 2) If patient remains NPO for more than 7 days, consider TPN to meet at least 75% of estimated needs 3) Advance patient when medically feasible to 60g CCHO diet, pending [employer]OL [employer] D[employer] TECHNICIAN approval 4) Current plan of care Expected Outcomes/Goals: 1) Patient to receive nutritional support within 7 days 2) appetite and labs to improve 3) diet to advance 4) f/u in 3 days Plan discussed with: Patient, Other (RN) Critical Care Time(min): 35 MICKEY RUFF MD Nov 27, 2024 22:06
[2024-11-28] VITALS (8 sets, daily range): BP systolic 127–171; BP diastolic 4–95; PULSE 75–90; RESP 18–19; TEMP 97.2–98.1; O2SAT 91–99
[2024-11-28] MEDS ORDERED: PIPERACILLIN-TAZOB 3.375GM 100 ML IV SCH (00:30)
[2024-11-28 06:25] LABS: Anion Gap 10 (5-15); Carbon Dioxide 26 mmol/L (20-31); Chloride 103 mmol/L (98-107); Potassium 3.8 mmol/L (3.5-5.1); Sodium 139 mmol/L (136-145)
[2024-11-28 06:32] LABS: BUN/Creatinine Ratio 7.1 (10.0-20.0); Blood Urea Nitrogen < 5 mg/dL (9-23); Calcium 8.4 mg/dL (8.7-10.4); Glucose 156 mg/dL (74-106)
[2024-11-28] MEDS: hydrALAZINE HCL 20 MG/ML VL IV PRN (11:58)
--- NOTE | 2024-11-28 18:36 | DVHPN2 ---
Subjective in bed on oxygen, at bedside Changes from previous H/P or p: No Changes Eyes: No Pain, No Vision change, No Conjunctivae inflammation, No Eyelid inflammation, No Other, No Redness ENT: No Ear pain, No Ear discharge, No Nose pain, No Nose discharge, No Nose congestion, No Mouth pain, No Mouth swelling, No Throat pain, No Throat swelling, No Other Cardiovascular: No Chest Pain, No Palpitations, No Orthopnea, No Paroxysmal Noc. Dyspnea, No Edema, No Lt Headedness, No Other Respiratory: No Cough, No Dry, No Shortness of breath, No SOB with excertion, No Wheezing, No Hemoptysis, No Pleuritic Pain, No Sputum, No Other Gastrointestinal: No Nausea, No Vomiting, No Abdominal Pain, No Diarrhea, No Constipation, No Melena, No Hematochezia, No Other Genitourinary: No Dysuria, No Frequency, No Incontinence, No Hematuria, No Retention, No Other Musculoskeletal: No other, No neck pain, No shoulder pain, No arm pain, No back pain, No hand pain, No leg pain, No foot pain Skin: No Rash, No Lesions, No Jaundice, No Bruising, No Other Objective Vitals Vital Signs Date Time Temp Pulse Resp B/P (MAP) Pulse Ox O2 Delivery O2 Flow Rate FiO2 11/28/24 17:00 98.0 75 19 127/61 (83) 98 98.0 11/28/24 08:00 Nasal Cannula* 2 28 Intake/Output Intake and Output 11/28/24 07:00 Intake Total 300 ml Output Total 1700 ml Balance -1400 ml Intake Oral 0 ml IV Total 300 ml Output Urine Total 1700 ml General Appearance: Alert, Oriented X3, Cooperative, No acute distress HEENT: Atraumatic Lungs: Clear to auscultation Cardiovascular: Regular rate Abdomen: Normal bowel sounds, Soft Extremities: No edema Medications Current Medications Medications Dose Ordered Sig/Eneida Route Start Time Stop Time Status Last Admin Dose Admin Famotidine 20 mg Q12HR IV 11/23/24 10:00 11/28/24 10:04 20 MG Diagnostic Test (Pha) 1 strip ACHS 11/23/24 07:00 11/28/24 16:36 1 STRIP Insulin Human Regular ACHS SC 11/23/24 07:00 11/28/24 16:37 6 UNITS Dextrose 50 ml UD PRN IV 11/23/24 04:15 Ondansetron HCl 4 mg Q4HP PRN IV 11/23/24 04:15 11/26/24 12:31 4 MG Nitroglycerin 0.4 mg Q5MINP PRN SL 11/23/24 04:15 Morphine Sulfate 2 mg Q30M PRN IV 11/23/24 04:15 Hydralazine HCl 10 mg Q6HP PRN IV 11/23/24 05:15 11/28/24 11:58 10 MG Acetaminophen 650 mg Q6HP PRN AR 11/23/24 22:45 11/24/24 19:50 650 MG Enoxaparin Sodium 40 mg DAILY SC 11/24/24 10:00 11/28/24 10:04 40 MG Piperacillin Sod/ Tazobactam Sod 100 ml @ 25 mls/hr Q8HR IV 11/24/24 14:00 11/28/24 16:29 25 MLS/HR Laboratory Results Laboratory Tests 11/26/24 09:24 11/28/24 05:30 Chemistry Test 11/28/24 05:30 Calcium Level 8.4 mg/dL (8.7-10.4) L Magnesium Level 2.0 mg/dL (1.6-2.6) HgA1c, TSH Test 11/28/24 05:30 Hemoglobin A1c 12.5 % A1C (<5.7) H Urinalysis Test 11/23/24 02:45 Urine Color Light-yellow (Yellow) Urine Clarity Clear (Clear) Urine pH 6.5 (5.0-9.0) Urine Specific [place] 1.009 (1.001-1.035) Urine Protein Trace (Negative) H Urine Ketones Negative (Negative) Urine Blood 1+ /uL (Negative) H Urine Nitrite Negative (Negative) Urine Bilirubin Negative (Negative) Urine Urobilinogen Normal mg/dL (Negative) Urine Leukocyte Esterase Trace /uL (Negative) Urine RBC 8 /hpf (0 - 3) Urine Microscopic WBC 13 /HPF (0-3) H Urine Squamous Epithelial Cells None seen /hpf (<5) Urine Bacteria None seen /hpf (None Seen) Urine Glucose 3+ mg/dL (Normal) H Microbiology Microbiology Date/Time Source Procedure Growth Status 11/24/24 15:30 Nose MRSA Screen - Final Complete 11/24/24 14:30 Urine - [place] Urine Culture - Final Complete 11/24/24 14:21 Sputum Gram Stain - Final Complete 11/24/24 14:21 Sputum Respiratory Culture - Final Complete 11/24/24 13:05 Blood Blood Culture - Preliminary NO GROWTH AFTER 72 HOURS OF INCUBATION. Resulted Assessment/Plan Assessment/Plan Metabolic encephalopathy now resolved Altered mental status resolved Disorientation, unspecified resolved Hypoglycemia resolved Diabetes type 2 with hyperglycemia uncontrolled A1C 12 Hypertensive urgency Generalized weakness Continue to wean oxygen if able plan to discharge home continue insulin regimen Plan discussed with: Patient Date of Service: Nov 28, 2024 Billing Provider: EMILY PALACIOS MD Common Visit Codes: [id number] INP/OBS CARE(HIGH) EMILY PALACIOS MD Nov 28, 2024 18:36
[2024-11-29] MEDS: PIPERACILLIN-TAZOB 3.375GM 100 ML IV SCH (00:25)
[2024-11-29 01:00] VITALS: BP 149/87; PULSE 78; RESP 18; TEMP 98.4; O2SAT 98
[2024-11-29 05:00] VITALS: BP 152/83; PULSE 65; RESP 18; TEMP 98.2; O2SAT 96
[2024-11-29 08:00] VITALS: PULSE 80
[2024-11-29] MEDS ORDERED: GLUC-224 SC (08:30)
[2024-11-29] MEDS ORDERED: ISOP70MI4 EX (08:41)
[2024-11-29] MEDS ORDERED: INSUINJ49 SC ×2 (08:41)
[2024-11-29] MEDS ORDERED: LANC-347 XX (08:41)
[2024-11-29] MEDS ORDERED: BLOO-169 XX (08:41)
[2024-11-29] MEDS ORDERED: INSU-1639 SC (08:41)
[2024-11-29 09:00] VITALS: BP 146/88; PULSE 73; RESP 19; TEMP 97.1; O2SAT 96
[2024-11-29 13:00] VITALS: BP 140/94; PULSE 84; RESP 17; TEMP 97.3; O2SAT 98
[2024-11-29 17:30] VITALS: BP 154/111; PULSE 85; RESP 17; TEMP 97.1; O2SAT 96
--- NOTE | 2024-11-29 17:34 | DVHDS2 ---
Discharge Summary Date of Admission Nov 23, 2024 at 04:07 Date of Discharge: Nov 29, 2024 Labs/Diagnostic Data: Laboratory Results Test 11/29/24 11:58 11/28/24 05:30 11/26/24 11:41 11/26/24 09:24 POC Glucose 269 mg/dl (70-106) Sodium Level 139 mmol/L (136-145) Potassium Level 3.8 mmol/L (3.5-5.1) Chloride Level 103 mmol/L (98-107) Carbon Dioxide Level 26 mmol/L (20-31) Anion Gap 10 (5-15) Blood Urea Nitrogen < 5 mg/dL (9-23) Creatinine 0.70 mg/dL (0.700-1.30) Glomerular Filtration Rate Calc 110 mL/min (>90) BUN/Creatinine Ratio 7.1 (10.0-20.0) Serum Glucose 156 mg/dL (74-106) Hemoglobin A1c 12.5 % A1C (<5.7) Calcium Level 8.4 mg/dL (8.7-10.4) Magnesium Level 2.0 mg/dL (1.6-2.6) Blood Gas Specimen Type Arterial Blood Gas Sample Site Right brachial Blood Gas Patient Temperature 37.0 Arterial Blood Date Drawn [id number] Arterial Blood pH 7.430 (7.350-7.450) Arterial Blood Partial Pressure CO2 39.5 mmHg (35.0-48.0) Arterial Blood Partial Pressure O2 116.0 mmHg (83.0-108.0) Arterial Blood HCO3 25.6 mmol/L (21.0-28.0) Arterial Blood Oxygen Saturation 98.3 % (94.0-98.0) Arterial Blood Base Excess 1.3 mmol/L (-2.0-3.0) Arterial Blood Oxyhemoglobin 96.8 % (94.0-98.0) Arterial Blood Carboxyhemoglobin 0.7 % (0.5-1.5) Arterial Blood Methemoglobin 0.8 % (0.0-1.5) Chris Test N/a Blood Gas Total Hemoglobin 12.00 g/dL (13.5-17.5) Blood Gas Modality Vent - cpap FiO2 % 30.0 Blood Gas Pressure Support 8 Blood Gas PEEP or CPAP 5.0 White Blood Count 7.9 10^3/uL (4.4-10.8) Red Blood Count 3.70 10^6/uL (4.5-5.90) Hemoglobin 10.8 g/dL (13.5-17.5) Hematocrit 32.7 % (41.0-53.0) Mean Corpuscular Volume 88.5 fL (80.0-100.0) Mean Corpuscular Hemoglobin 29.1 pg (28.0-32.0) Mean Corpuscular Hemoglobin Concent 32.9 g/dL (32.0-36.0) Red Cell Distribution Width 14.3 % (11.8-14.3) Platelet Count 199 10^3/uL (140-450) Mean Platelet Volume 8.3 fL (6.9-10.8) Neutrophils (%) (Auto) 70.0 % (37.0-80.0) Lymphocytes (%) (Auto) 17.1 % (10.0-50.0) Monocytes (%) (Auto) 9.0 % (0.0-12.0) Eosinophils (%) (Auto) 2.9 % (0.0-7.0) Basophils (%) (Auto) 1.0 % (0.0-2.0) Neutrophils # (Auto) 5.6 10 ^3/uL (1.6-8.6) Lymphocytes # (Auto) 1.4 10 ^3/uL (0.4-5.4) Monocytes # (Auto) 0.7 10 ^3/uL (0-1.3) Eosinophils # (Auto) 0.2 10 ^3/uL (0-0.8) Basophils # (Auto) 0.1 10 ^3/uL (0-0.2) Nucleated Red Blood Cells 0.0 % Test 11/26/24 07:15 11/25/24 05:00 11/23/24 15:00 11/23/24 10:32 Blood Gas Set Respiration Rate 16.0 Blood Gas Tidal Volume 450.0 Total Bilirubin 0.4 mg/dL (0.2-1.0) Aspartate Amino Transferase (AST) 24 U/L (13-40) Alanine Aminotransferase (ALT) 17 U/L (7-40) Alkaline Phosphatase 102 U/L (46-116) Total Protein 5.2 g/dL (5.7-8.2) Albumin 3.0 g/dL (3.2-4.8) Prothrombin Time 20.9 sec (9.3-11.8) Prothrombin Time INR 2.12 (0.9-1.15) Activated Partial Thromboplast Time 39.4 SEC (24.5-34.5) Blood Gas Spontaneous Rate 14 Test 11/23/24 02:45 11/23/24 01:25 11/23/24 00:20 Urine Color Light-yellow (Yellow) Urine Clarity Clear (Clear) Urine pH 6.5 (5.0-9.0) Urine Specific [place] 1.009 (1.001-1.035) Urine Protein Trace (Negative) Urine Ketones Negative (Negative) Urine Blood 1+ /uL (Negative) Urine Nitrite Negative (Negative) Urine Bilirubin Negative (Negative) Urine Urobilinogen Normal mg/dL (Negative) Urine Leukocyte Esterase Trace /uL (Negative) Urine RBC 8 /hpf (0 - 3) Urine Microscopic WBC 13 /HPF (0-3) Urine Squamous Epithelial Cells None seen /hpf (<5) Urine Bacteria None seen /hpf (None Seen) Urine Glucose 3+ mg/dL (Normal) Urine Opiates Screen Neg (NEGATIVE) Urine Fentanyl Screen Neg (NEGATIVE) Urine Barbiturates Screen Neg (NEGATIVE) Urine Phencyclidine Screen Neg (NEGATIVE) Urine Amphetamines Screen Neg (NEGATIVE) Urine Benzodiazepines Screen Neg (NEGATIVE) Urine Cocaine Screen Neg (NEGATIVE) Urine Cannabinoids Screen Neg (NEGATIVE) Troponin I High Sensitivity 3 ng/L (</=54) Lactic Acid Level 1.1 mmol/L (0.4-2.0) Other Laboratory Tests 11/28/24 05:30 11/26/24 09:24 Brief Hx & Hospital Course: The patient is a 54-year-old male with past medical history of factor five deficiency and diabetes mellitus who presented to [facility] ED for evaluation of altered level of consciousness. As reported by family member, patient was found unresponsive, altered, and confused, so EMS were called. When EMS arrived on the scene, patient's blood sugar was 21 mg/dL and was given D10, blood sugar slightly improved to 73 [address] route to our facility ED. patient was seen and evaluated in the ED, laboratory data shows WBC 4.8, platelets 226, sodium 136, potassium 3.5, BUN 16, creatinine 0.82, GFR 104, glucose 136, calcium 8.6, troponin 3, lactic acid 1.1. Patient became more altered with respiratory distress, increased work of breathing, and subsequently intubated due to high probability of clinically significant life-threatening deterioration. Blood pressure 207/124 trending down to 145/91, heart rate 87, temperature 94.1 F, O2 saturation 94% on ventilator. Head CT showed no acute intracranial abnormality. Please see medication orders section in the computer. On my assessment, patient is fully intubated, family member at bedside, no diaphoresis, no diarrhea, no vomiting, no fever. Patient was admitted for further evaluation and medical management. During hospital stay he became more lethargic and intubated in the ED, given IV hydralazine and BP improved but then became hypotensive requiring pressors for several days. CT head and MRI negative. He also had uncontrolled hyperglycemia with A1c 12. He was on IV abx, full septic workup was negative for any infection. Unclear etiology of hypotension and encephalopathy, he was later extubated and off pressors and all workup negative. Condition at Discharge: Good Final Diagnosis/Problems List Metabolic encephalopathy due to electrolyte abnormalities resolved Hypoglycemia resolved Hypertensive urgency present on admision Sepsis present on admision but ruled out Discharge Disposition: Home Discharge Instruct/Medications Diet: Regular Activity: No Restrictions, As Tolerated Follow Up/Referral: PCP in 7 days Discharge Statement: "Patient was advised to return to the ER or call 911 if any headaches, dizziness, shortness of breath, chest pain, abdominal pain, bleeding, fevers, or worsening of medical condition. Patient was counseled about treatment plan, medications, possible side effects, patientverbalized understanding. All questions were answered to the best of my ability. This discharge took greater then 30 minutes in planning, reviewing documentation, counseling the patient, and discussing with other team members." ASSESSMENT ASSESSMENT Assessment diabetes type 2 Date of Service: Nov 29, 2024 Billing Provider: EMILY PALACIOS MD Common Visit Codes: [id number] DISCH DAY >30min EMILY PALACIOS MD Nov 29, 2024 17:34
== END 2024-11-29 19:05 | disposition home or self-care (01) | DRG 420 ==
LOC: ER 23:25 → EDBD 23:25 → OVERFLOW 11-23 04:07 → TELE-CENTR 11-27 19:32
PROVIDERS: ADMIT Hospitalist; ATTEND Hospitalist
PROC: 0BH17EZ Insertion of Endotracheal Airway into Trachea, Via Natural or Artificial Opening (ICD-10-PCS; principal; 2024-11-23)
PROC: 5A1945Z Respiratory Ventilation, 24-96 Consecutive Hours (ICD-10-PCS; 2024-11-23)
PROC: 06HY33Z Insertion of Infusion Device into Lower Vein, Percutaneous Approach (ICD-10-PCS; 2024-11-23)
DX: E11.649 Type 2 diabetes mellitus with hypoglycemia without coma (principal); J96.01 Acute respiratory failure with hypoxia; R57.8 Other shock; G93.41 Metabolic encephalopathy; I16.0 Hypertensive urgency; E87.29 Other acidosis; J98.11 Atelectasis; E11.65 Type 2 diabetes mellitus with hyperglycemia; Z88.1 Allergy status to other antibiotic agents; Z89.612 Acquired absence of left leg above knee; Z79.4 Long term (current) use of insulin
CPT/HCPCS: 31500; 36415; 36556; 36600; 70450; 71045; 80048; 80053; 80307; 81001; 82805; 82962; 83036; 83605; 83735; 84484; 85025; 85610; 85730; 87040; 87070; 87081; 87086; 87205; 92610; 93005; 94002; 94003; 94640; 96360; 97163; 99291; G0378; J0131; J1815; J2405; J2543; J2704; J3480; J3490; J7060